=== PATIENT | female | born 2000 | race Hispanic/Latino ===

== ENCOUNTER 2021-01-21 22:28 | Emergency (ER) | payer OTHER ==
--- OUTSIDE RECORDS SUMMARY | 2021-01-21 22:32 | XMS REPORT | Continuity of Care Document ---
:2000 Author Organization [facility] t Address [address] [place] [address] Care Team Providers Name Role Phone Charity Trujillo Attending Clinician Lab, Fam Pob I Attending Clinician Unavailable Singer GARRETT Attending Clinician Payers Payer Name Policy Type Policy Number Effective Date Expiration Date S ource Problems This patient has no known problems. Allergies, Adverse Reactions, Alerts Allergy Allergy Status Severity Reaction(s) Onset Inactive Treating Comm ents Source Name Type Date Date Clinician No Known DA Active U 2019-06 [facility]12 [facility] [place] Medications This patient has no known medications. Procedures This patient has no known procedures. Encounters Start End Encounter Admission Attending Care Care Encounter Source Date/Time Date/Time Type Type Clinicians Facility Department ID 2020-07-24 2020-07-24 Letter JIM Rossi [id number] 00:00:00 00:00:00 (Out) [facility] Service [id number] Surgical [id number] Specialti [id number] [address] [place] 2020-07-17 2020-07-17 Laboratory Lab, [facility] [id number] 14:15:27 14:35:27 Only Fam b [facility] [id number] [place] [id number] [facility] [id number] nal [address] 2019-08-13 2019-08-13 Emergency , [facility] [id number] 16:18:19 18:49:00 Dheeraj Silver [id number] [place] 4.2.7.2.686 [place] [id number] Results Test Description Test Time Test Comments Results Result Comments Source PLACENTA THIRD TRIMESTER 2020-06-05 08:43:00 Test Item Value Reference Range Interpretation Comme nts PLACENTA RUN THIRD DATE: 06/05/20 [facility] PAGE 1 RUN TRIMESTER TIME: 1913 Specimen Inquiry RUN USER: INTERFACE (test code = PLACIII) SHIRA ENT: KATHY PRASAD [place] [facility] [place]: [id number] AGE/SX: 19/F ROOM: [facility] RE06/01/20REG DR: Brenda Baca MD : 00 BED: A DIS: 06/04/20 STATUS: DIS IN TLOC: SPEC #: [id number] R BANKING ASSISTANT: 06/02/20 STATUS: SUJEY HARVEY #: [id number] ADY: - SUBM DR: Brenda Baca MD ENTERED: 06/02/20 SP TYPE: PL ACIII OTHR DR: ORDERED: LEVEL V SURGICA CODES: MI2305 - PLACENTA, NOS PROCEDURES: LE DAVINA V SURGICA (Incomplete) TISSUES: PLACENTA, NOS - PLACENTA CLINICAL HI STORY 19 year old, 36.0 weeks, L1, vaginal delivery, prematurity <37 weeks (wpd) FINAL DIAGNOSIS Placenta, bhagat gestation (36.0 weeks): - third trimester villous archite cture - intraplacental hemorrhage/thrombus - umbilical cord: insertion 1 cm from margin, 3- vessel, 45 cm length - placental weight: actual 345 gms/expected mean 447 gms (10-25th percentile) CPT Code: 32184 cds/wpd GROSS DESCRIPTION The specimen was received in a container, labeled with the patient's n lidia, unit number and designated "placenta". The following attributes are observed: Cord insertion: 1 cm from margin Cord length: 45 cm Number of vessels: 3 Cord color: Suresh-white O ther cord findings: None surface findings: Blue-purple, wrinkled, glistening with focal subchorionic fibrin depositi on Vasculature: Unremarkable blood vasculature Membranes rupt ure site: 5 cm to margin Membrane color: Suresh-pink Other membran e findings: Semi-translucent, circummarginate The trimmed placental weight: 345 gm Disk measurement: 15 x 14 x 3 cm in greatest dimension Accesso ry lobes: None CONTINUED ON NEXT PAGE RUN DATE: 06/05/20 [facility] PAGE 2 RUN TIME: 1913 Specimen Inquiry RUN USER: INTERFACE SPEC #: [id number] PATIENT: KATHY PRASAD #[id number] (Continued) ------- GROSS DESCRIPTION (Continued) Maternal surface: Lobulated and focally disrup robert, but complete Parenchyma: Red-brown and spongy Parenchyma lesions: None Cassettes: A1 through A4 corine 06/03/20 ---- Signed Fercho Jones 06/05/20 0843 END OF REPORT CBC W/AUTO [id number] 10:33:00 Test Item Value Reference Range Interpretation Comments WHITE BLOOD CELL (test 21.3 K/mm3 6.6-12.1 HH RESU LTS CALLED TO code = WBC) .READ BACK & CONFIRMED? .BY [id number] 06/03 1032.RESULTS CA LLED TO MAURICIO.READ KATARZYNA K & CONFIRMED? YES. BY [id number] 06/03 1033.Results verified by rep eat analysis RED BLOOD CELL (test 3.31 M/mm3 3.45-5.01 L code = RBC) HEMOGLOBIN (test code = 8.6 g/dL 10.7-13.9 L HGB) HEMATOCRIT (test code = 27.3 % 32.1-42.1 L HCT) MEAN CELL VOLUME (test 83 fL 84.1-94.8 L code = MCV) MEAN CELL HGB (test code 26.0 pg 27-35 L = MCH) MEAN CELL HGB 31.5 gm/dL 32.2-34.1 L CONCETRATION (test code = MCHC) RED CELL DISTRIBUTION 13.6 % 12.4-16.5 N WIDTH (test code = RDW) PLATELET COUNT (test 307 K/mm3 133-385 N code = PLT) MEAN PLATELET VOLUME 10.5 fl 9.1-12.7 N (test code = MPV) NEUTROPHIL % (test code 78.6 % 56.5-79.4 N = NT%) LYMPHOCYTE % (test code 13.9 % 14.3-34.3 L = LY%) MONOCYTE % (test code = 5.8 % 5.1-10.4 N MO%) EOSINOPHIL % (test code 0.0 % 0.1-3.0 L = EO%) BASOPHIL % (test code = 0.1 % 0.1-1.0 N BA%) NEUTROPHIL # (test code 16.8 K/mm3 = NT#) LYMPHOCYTE # (test code 3.0 K/mm3 = LY#) MONOCYTE # (test code = 1.2 K/mm3 MO#) EOSINOPHIL # (test code 0 K/mm3 = EO#) BASOPHIL # (test code = 0.0 K/mm3 BA#) RBC MORPHOLOGY REQUIRED NORMAL (test code = RBCM) PLATELET MORPHOLOGY NORMAL REQUIRED (test code = PLTMR) CBC W/AUTO [id number] 10:33:00 Test Item Value Reference Range Interpretation Comments WHITE BLOOD CELL (test 21.3 K/mm3 6.6-12.1 HH RESU LTS CALLED TO code = WBC) .READ BACK & CONFIRMED? .BY [id number] 06/03 1032.RESULTS CA LLED TO MAURICIO.READ KATARZYNA K & CONFIRMED? YES. BY [id number] 06/03 1033.Results verified by rep eat analysis RED BLOOD CELL (test 3.31 M/mm3 3.45-5.01 L code = RBC) HEMOGLOBIN (test code = 8.6 g/dL 10.7-13.9 L HGB) HEMATOCRIT (test code = 27.3 % 32.1-42.1 L HCT) MEAN CELL VOLUME (test 83 fL 84.1-94.8 L code = MCV) MEAN CELL HGB (test code 26.0 pg 27-35 L = MCH) MEAN CELL HGB 31.5 gm/dL 32.2-34.1 L CONCETRATION (test code = MCHC) RED CELL DISTRIBUTION 13.6 % 12.4-16.5 N WIDTH (test code = RDW) PLATELET COUNT (test 307 K/mm3 133-385 N code = PLT) MEAN PLATELET VOLUME 10.5 fl 9.1-12.7 N (test code = MPV) NEUTROPHIL % (test code 78.6 % 56.5-79.4 N = NT%) LYMPHOCYTE % (test code 13.9 % 14.3-34.3 L = LY%) MONOCYTE % (test code = 5.8 % 5.1-10.4 N MO%) EOSINOPHIL % (test code 0.0 % 0.1-3.0 L = EO%) BASOPHIL % (test code = 0.1 % 0.1-1.0 N BA%) NEUTROPHIL # (test code 16.8 K/mm3 = NT#) LYMPHOCYTE # (test code 3.0 K/mm3 = LY#) MONOCYTE # (test code = 1.2 K/mm3 MO#) EOSINOPHIL # (test code 0 K/mm3 = EO#) BASOPHIL # (test code = 0.0 K/mm3 BA#) RBC MORPHOLOGY REQUIRED NORMAL NORMAL (test code = RBCM) PLATELET MORPHOLOGY NORMAL NORMAL REQUIRED (test code = PLTMR) URINALYSIS [id number] 02:33:00 Test Item Value Reference Range Interpretation Comments UA COLOR (test code = COLU) STRAW YELLOW UA APPEARANCE (test code = Slightly-Cloudy CLEAR APPU) UA GLUCOSE DIPSTICK (test NEGATIVE NEG code = DGLUU) UA BILIRUBIN DIPSTICK (test NEGATIVE NEG code = BILU) UA KETONE DIPSTICK (test code 1+ NEG A = KETU) UA SPECIFIC GRAVITY (test 1.005 1.001-1.035 N code = SGU) UA BLOOD DIPSTICK (test code 2+ NEG A = DONNY) UA PH DIPSTICK (test code = 7.0 5-9 CHAU) UA PROTEIN DIPSTICK (test NEGATIVE NEG code = PROU) UA UROBILINIOGEN DIPSTICK NEGATIVE mg/dL NEG (test code = URO) UA NITRITE DIPSTICK (test NEG NEG code = ROXANNE) UA LEUKOCYTE ESTERASE 3+ NEG A DIPSTICK (test code = LEUU) UA WBC (test code = WBCU) 2-5 #/hpf NONE SEEN A UA RBC (test code = RBCU) 6-10 #/hpf NONE SEEN A UA EPITHELIAL CELLS (test RARE #/HPF RARE-FEW code = EPIU) UA BACTERIA (test code = RARE /HPF RARE-FEW BACU) UA MUCUS (test code = MUCU) RARE NONE SEEN AG HEPATITIS B [id number] 02:33:00 Test Item Value Reference Range Interpretation Comments AG HEPATITIS B SURFACE (test code NONREACTIVE NONREACTIVE = HBSAG) IS CONSENT FORM SIGNED FOR HIV TESTING? B HEPATITIS C [id number] 02:33:00 Test Item Value Reference Range Interpretation Comments AB HEPATITIS C (test code = NONREACTIVE NONREACTIVE HCVAB) SIGNAL TO CUTOFF (test code = 0.09 <0.80 N CUTOFF) IS CONSENT FORM SIGNED FOR HIV TESTING? YAB [id number] 02:33:00 Test Item Value Reference Range Interpretation Comments AB TREPONEMA (test code = TREPAB) NONREACTIVE NONREACTIVE IS CONSENT FORM SIGNED FOR HIV TESTING? B HIV 1 02:33:00 Test Item Value Reference Range Interpretation Comments AB HIV 1 2 (test NONREACTIVE NONREACTIVE [facility] Proteopureaur code = [id number]) 4th Gen HIV Ag/Ab Combo Screen IS CONSENT FORM SIGNED FOR HIV TESTING? YCOMPREHENSIVE METABOLIC [id number] 02:30:00 Test Item Value Reference Range Interpretation Comments SODIUM (test code = NA) 137 mEq/L 135-145 N POTASSIUM (test code = K) 4.4 mEq/L 3.5-5.0 N CHLORIDE (test code = CL) 103 mEq/L 100-115 N CARBON DIOXIDE (test code = CO2) 20 mEq/L 22-31 L ANION GAP (test code = GAP) 18.60 10-20 N GLUCOSE (test code = GLU) 68 mg/dL 65-110 N BLOOD UREA NITROGEN (test code = 5 mg/dL 7-18 L BUN) GLOMERULAR FILTRATION RATE (test 206 ml/min >60 N code = GFR) CREATININE (test code = CREAT) 0.4 mg/dL 0.5-1.0 L TOTAL PROTEIN (test code = PROT) 6.7 gm/dL 6.3-8.2 N ALBUMIN (test code = ALB) 2.7 gm/dL 3.4-4.8 L CALCIUM (test code = CA) 8.7 mg/dL 8.4-10.2 N BILIRUBIN TOTAL (test code = 0.3 mg/dL 0.2-1.0 N BILT) SGOT/AST (test code = AST) 42 units/L 15-37 H SGPT/ALT (test code = ALT) 19 units/L 12-78 N ALKALINE PHOSPHATASE TOTAL (test 188 units/L 46-116 H code = ALKP) - US FLW [id number] 02:24:00 [facility] : 2000 Sex: F Patient Name: KATHY PRASAD Unit No: [id number] EXAMS: CPT CODE: [id number] [place] FLW UP 69778 STUDY: - US FLW UP 06/01/2020 1:09 AM Ordering Physician: Cris Hardy MD Patient Name: KATHY PRASAD MR: [id number] : 2000; Age: 19years y/o Female Clinical Indication: labor 35wk, growth, lea Comparison: None FINDINGS: Multiple static images from a limited obstetrical ultrasound including krishnan scale and M- mode imaging are submitted for interpretation. The examination was performed primarily to assess presentation, size, and dates. The structures were not assessed. GENERAL DESCRIPTION Single live intrauterine . Presentation: Cephalic/vertex Placental location: Posterior Placental grade: III Placenta previa: No. Amniotic fluid: Normal in appearance. LEA: 11.8 cm Cervix: Limited visualization of the cervix related to artifact from the head. The cervix is estimated 2.2 cm in length. Normal maternal right ovary measuring 2.5 x 1.5 x 1.6 cm. Nonvisualizedmaternal left ovary likely related to artifact from body habitus and overlying bowel gas. STRUCTURES Brain: Not evaluated. Spine: Not evaluated. Heart: Not evaluated. heart rate: 135 beats per minute. Kidneys: Not evaluated. Urinary Bladder: Not evaluated. Stomach: Not evaluated. Umbilical Cord: Not evaluated. Cord Insertion: Not evaluated. Extremities: Not evaluated. BIOMETRIC MEASUREMENTS BPD 8.27 cm 33 W 2 D HEAD CIRCUMFERENCE 31.15 cm 34 W 6 D [facility] NAME: KATHY PRASAD Radiology Department PHYS: BISHNUTimothy Cris Hardy [address] : 2000 AGE: 19 SEX: F [place], [place] [address] LOC: MAGUI DPHONE #: [phone] EXAM DATE: 06/01/2020 STATUS: ADM IN FAX #: [phone] RAD NO: Page 1 Signed Report (CONTINUED)Patient Name: KATHY PRASAD Unit No: [id number] EXAMS: CPT CODE: [id number] [place] FLW UP 13364 <Continued> ABDOMINAL CIRCUMFERENCE 31.96 cm 35 W 6 D FEMUR LENGTH 6.99 cm 35 W 6 D COMPOSITE SONOGRAPHIC AGE 34 W 6 D ESTIMATED WEIGHT 2658 g ESTIMATED DATE DELIVERY (US) 07/07/2020 IMPRESSION: Single live intrauterine pregnancyat 34 weeks 6 days as above described. LEA 11.8 cm. The structures are not individually evaluated on this examination, but no abnormality is demonstrated. GENERAL OBSERVATIONS REGARDING ULTRASOUND: 1. A normal or negative sonogram report should not delay further investigation of a clinically suspicious or abnormal . 2. position or overlap of parts may prevent complete evaluation of the fetus. 3. Congenital and developmental abnormalities are not always sonographically visualized. 4. Repeat sonograms may be necessary depending on the clinical development during . SL: TPAINTER-H at 0224 Reported and signed by: Kaushik Reyna MD [facility] NAME: KATHY PRASAD Radiology Department PHYS: Cris Hardy [address] : 2000 AGE: 19 SEX: F [place], [place] [address] LOC: MAG[facility] [place] PHONE #: [phone] EXAM DATE: 06/01/2020 STATUS: ADM IN FAX #: [phone] RAD NO: Page 2 Signed Report (CONTINUED) Patient Name: KATHY PRASAD Unit No: [id number] EXAMS: CPT CODE: [id number] US FLW UP 17189 <Continued> CC: Brenda Baca MD; Cris winters MD Technologist: Mirella Jaimes RDMS Probe: Trnscrbd D/ ([id number] Orig Print D/T: S: 06/01/2020 (226) [facility] NAME: KATHY PRASAD Radiology Department PHYS: Alix Limfer Rai [address] : 2000 AGE: 19 SEX: F [place] [address] LOC: [facility] [place] PHONE #: [phone] EXAM DATE: 06/01/2020 STATUS: ADM IN FAX #: [phone] RAD NO: Page 3 Signed Report Patient Name: GLENNA PRASAD Unit No: [id number] EXAMS: CPT CODE: [id number] US FLW UP 30364 <Continued> [facility] NAME: KATHY PRASAD Radiology Department PHYS: Alix OliveiraCelina [address] : 2000 AGE: 19 SEX: F [place] [address] LOC: [facility] [place] PHONE #: [phone] EXAM DATE: 06/01/2020 STATUS: ADM IN FAX #: [phone] RAD NO: Page 4 Signed ReportAG HEPATITIS B SURFACE 2020-06-01 02:13:00 Test Item Value Reference Range Interpretation Comments AG HEPATITIS B SURFACE (test code NONREACTIVE NONREACTIVE = HBSAG) IS CONSENT FORM SIGNED FOR HIV TESTING? YAB HEPATITIS C [id number] 02:13:00 Test Item Value Reference Range Interpretation Comments AB HEPATITIS C (test code = HCVAB) NONREACTIVE SIGNAL TO CUTOFF (test code = CUTOFF) <0.80 IS CONSENT FORM SIGNED FOR HIV TESTING? YAB [id number] 02:13:00 Test Item Value Reference Range Interpretation Comments AB TREPONEMA (test code = TREPAB) NONREACTIVE NONREACTIVE IS CONSENT FORM SIGNED FOR HIV TESTING? YAB HIV 1 02:13:00 Test Item Value Reference Range Interpretation Comments AB HIV 1 2 (test code = UQF33LE) NONREACTIVE IS CONSENT FORM SIGNED FOR HIV TESTING? YCBC W/AUTO [id number] 01:26:00 Test Item Value Reference Range Interpretation Comments WHITE BLOOD CELL (test code = WBC) 14.6 K/mm3 6.6-12.1 H RED BLOOD CELL (test code = RBC) 3.72 M/mm3 3.45-5.01 N HEMOGLOBIN (test code = HGB) 9.6 g/dL 10.7-13.9 L HEMATOCRIT (test code = HCT) 30.3 % 32.1-42.1 L MEAN CELL VOLUME (test code = MCV) 82 fL 84.1-94.8 L MEAN CELL HGB (test code = MCH) 25.8 pg 27-35 L MEAN CELL HGB CONCETRATION (test 31.7 gm/dL 32.2-34.1 L code = MCHC) RED CELL DISTRIBUTION WIDTH (test 13.3 % 12.4-16.5 N code = RDW) PLATELET COUNT (test code = PLT) 332 K/mm3 133-385 N MEAN PLATELET VOLUME (test code = 10.0 fl 9.1-12.7 N MPV) NEUTROPHIL % (test code = NT%) 72.8 % 56.5-79.4 N LYMPHOCYTE % (test code = LY%) 19.0 % 14.3-34.3 N MONOCYTE % (test code = MO%) 7.1 % 5.1-10.4 N EOSINOPHIL % (test code = EO%) 0.1 % 0.1-3.0 N BASOPHIL % (test code = BA%) 0.2 % 0.1-1.0 N NEUTROPHIL # (test code = NT#) 10.6 K/mm3 LYMPHOCYTE # (test code = LY#) 2.8 K/mm3 MONOCYTE # (test code = MO#) 1.0 K/mm3 EOSINOPHIL # (test code = EO#) 0.01 K/mm3 BASOPHIL # (test code = BA#) 0.0 K/mm3 RBC MORPHOLOGY REQUIRED (test code NORMAL NORMAL = RBCM) PLATELET MORPHOLOGY REQUIRED (test NORMAL NORMAL code = PLTMR) COVID 19 Asymptomatic IH [id number] 01:19:00 Test Item Value Reference Range Interpretation Comments COVID 19 NEGATIVE NEGATIVE This test has b een Asymptomatic IH AG authorize d only for the (test code = detection ofpro teins from COVNONPUIAG) SARS-CoV-2, not for any other viruses orpathogens. N egative results should be treated as presumptive andconfirmed wi th a molecular assay , if necessary for patientmanageme nt. Negative result s do not rule out COVID- 19 andshould not b e used as the sole basis for treatment orpat ient management deci sions, including infec tion controldecision s. Negative result s should be considered i n thecontext of a patient's recent exposure s, history and thepresence of clinical signs and symptoms consis tent withCOVID-19. T his test has not been FD A cleared or approved; th e test hasbeen authori beny by FDA under an Emerge ncy Use Authorization(E UA) for use by laborato ramón certified under the CLIA thatmeet the re quirements to perform mode rate, high or waivedcomple xity tests. This meri t is authorized for use at thePoint of Car e (POC), i.e., in patien t care settingsoperati ng under a CLIA Certificat e of Waiver, Certifi mariana ofCompliance, o r Certificate of Accreditation. This test is only authori jolied for the duration of thedeclaration that circumstances e xist justifying theauthorizatio n of emergency use o f in vitro diagnostic test sfor detection and/o r diagnosis of CO VID-19 under Hsyypyy23 4(b)(1) of the Act, 21 U.S .C. 360bbb-3(b)(1), unless theauthorizatio n is terminated or r evoked sooner.
[2021-01-21 23:25] LABS: Urine Blood Negative (Negative); Urine Glucose Negative (Negative); Urine Protein Negative (Negative); Urine Specific Gravity 1.025 (1.005-1.030); Urine pH 6.5 (5.0-7.0)
[2021-01-21 23:47] LABS: Urine Mucus 1+ /HPF (NONE SEEN)
[2021-01-21 23:48] LABS: Urine Bacteria <20 /HPF (<20); Urine RBC <5 /HPF (NONE SEEN)
[2021-01-21 23:51] LABS: Urine Specific Gravity/Preg 1.025 (1.005-1.030)
[2021-01-21 23:54] LABS: Absolute Lymphocytes (CBC) 3.2 K/uL (0.7-4.9); Basophils % 0.6 % (0-1.3); Hematocrit 38.4 % (36.0-45.0); Lymphocytes % 32.7 % (15.3-44.8); MPV 7.8 fL (7.6-11.3); RBC Red Blood Cell Count 4.63 M/uL (3.86-4.86)
[2021-01-22 00:05] LABS: ALT/SGPT 25 U/L (12-78); AST/SGOT 14 U/L (15-37); Albumin 3.9 g/dL (3.4-5.0); Alkaline Phosphatase 128 U/L (45-117); BUN Blood Urea Nitrogen 8 mg/dL (7-18); Bicarbonate 26 mmol/L (21-32); Bilirubin Direct < 0.1 mg/dL (0-0.2); Bilirubin Total 0.2 mg/dL (0.2-1.0); Glucose Level 69 mg/dL (74-106); Lipase 78 U/L (73-393); Potassium 3.5 mmol/L (3.5-5.1); Protein, Total 7.8 g/dL (6.4-8.2); Sodium Level 141 mmol/L (136-145)
--- NOTE | 2021-01-22 01:15 | ER ---
Nurse's Notes [facility] Name: Sisi Aldrich Age: 20 yrs Sex: Female : 2000 Arrival Date: 01/21/2021 Time: 22:34 Bed 11 Private MD: Diagnosis: Lower abdominal pain, unspecified Presentation: 01/21 22:43 Chief complaint: Patient states: is having some pain to LLQ area and shoots up, started iw 2 hours ago, had a BM. Coronavirus screen: At this time, the client does not indicate any symptoms associated with coronavirus-19. Ebola Screen: Patient negative for fever greater than or equal to 101.5 degrees Fahrenheit, and additional compatible Ebola Virus Disease symptoms Patient denies exposure to infectious person. Patient denies travel to an Ebola-affected area in the 21 days before illness onset. No symptoms or risks identified at this time. Initial Sepsis Screen: Does the patient meet any 2 criteria? No. Patient's initial sepsis screen is negative. Does the patient have a suspected source of infection? No. Patient's initial sepsis screen is negative. Risk Assessment: Do you want to hurt yourself or someone else? Patient reports no desire to harm self or others. Onset of symptoms was January 21, 2021. 22:43 Method Of Arrival: Ambulatory iw 22:43 Acuity: KAVIN 3 iw ROBOTICS MECHANIC: 22:45 LMP N/A - control method iw Historical: - Allergies: 22:44 No Known Allergies; iw - Home Meds: 22:44 None [Active]; iw - PMHx: 22:44 None; iw - PSHx: 22:44 None; iw Screenin/05 00:45 Abuse screen: Denies threats or abuse. Nutritional screening: No deficits noted. jb4 Tuberculosis screening: No symptoms or risk factors identified. Fall Risk None identified. Assessment: 00:45 General: Appears in no apparent distress. comfortable, Behavior is calm, cooperative. jb4 Pain: Complains of pain in abdomen Pain does not radiate. Pain currently is 7 out of 10 on a pain scale. Neuro: Level of Consciousness is awake, alert, obeys commands, Oriented to person, place, time, situation. Cardiovascular: Patient's skin is warm and dry. Respiratory: Airway is patent Respiratory effort is even, unlabored, Respiratory pattern is regular, symmetrical. GI: Abdomen is flat, non-distended. : No signs and/or symptoms were reported regarding the genitourinary system. EENT: No signs and/or symptoms were reported regarding the EENT system. Derm: Skin is intact, Skin is pink, warm \T\ dry. Musculoskeletal: Circulation, motion, and sensation intact. Range of motion: intact in all extremities. 01:45 Reassessment: Patient appears in no apparent distress at this time. Patient and/or jb4 family updated on plan of care and expected duration. Pain level reassessed. Patient is alert, oriented x 3, equal unlabored respirations, skin warm/dry/pink. Vital Signs: 01/21 22:43 BP 157 / 96; Pulse 105; Resp 16; Temp 98.0; Pulse Ox 100% on R/A; iw ED Course: 22:34 Patient arrived in ED. wm 22:44 Triage completed. iw 22:47 Brenda Ponce FNP-C is PHCP. kb 22:47 Alex Alexandra MD is Attending Physician. kb 23:12 Inserted saline lock: 22 gauge in right antecubital area, using aseptic technique. iw Blood collected. 08 00:42 Montana Ren, RN is Primary Nurse. jb4 00:43 CT Abd/Pelvis - IV Contrast Only In Process Unspecified. EDMS 00:45 Patient has correct armband on for positive identification. Bed in low position. Call jb4 light in reach. Side rails up X 1. Pulse ox on. NIBP on. 01:45 No provider procedures requiring assistance completed. IV discontinued, intact, jb4 bleeding controlled, No redness/swelling at site. Pressure dressing applied. Administered Medications: 01:42 Drug: Ketorolac 15 mg Route: IVP; Site: left antecubital; ms4 01:42 Follow up: Response: No adverse reaction ms4 Outcome: 01:15 Discharge ordered by . kb 01:45 Discharged to home ambulatory, with significant other. jb4 01:45 Condition: stable 01:45 Discharge instructions given to patient, Instructed on discharge instructions, follow up and referral plans. Demonstrated understanding of instructions, follow-up care, Prescriptions given X 1. 01:48 Patient left the ED. jb4 Signatures: Dispatcher [employer] EDID Brenda Ponce FNP-C FNP-Pauline Verdugo, RN RN iw Montana Ren, RN RN jb4 Ana Solis Mikaela RN RN ms4
--- NOTE | 2021-01-22 01:15 | EDPHYS ---
Physician Documentation [facility] Name: Sisi Aldrich Age: 20 yrs Sex: Female : 2000 Arrival Date: 01/21/2021 Time: 22:34 Bed 11 Private MD: ED Physician Alex Alexandra HPI: 01/22 01:12 This 20 yrs old Female presents to ER via Ambulatory with complaints of kb Abdominal Pain - LLQ. 01:12 The patient presents with abdominal pain in the left lower quadrant. Onset: The kb symptoms/episode began/occurred this morning. The symptoms do not radiate. Associated signs and symptoms: none. The symptoms are described as constant. Modifying factors: The symptoms are alleviated by nothing, the symptoms are aggravated by nothing. Severity of pain: At its worst the pain was mild moderate in the emergency department the pain is unchanged. The patient has not experienced similar symptoms in the past. The patient has not recently seen a physician. 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 kb Abdomen/GI: Positive for abdominal pain, Negative for nausea, vomiting, and diarrhea. All other systems are negative. Exam: 01:13 Constitutional: This is a well developed, well nourished patient who is awake, alert, kb and in no acute distress. Head/Face: Normocephalic, atraumatic. ENT: Moist Mucous membranes Cardiovascular: Regular rate and rhythm with a normal S1 and S2. No gallops, murmurs, or rubs. No pulse deficits. Respiratory: Respirations even and unlabored. No increased work of breathing, no retractions or nasal flaring. Abdomen/GI: Soft, non-tender. No distention Skin: Warm, dry with normal turgor. Normal color. MS/ Extremity: Pulses equal, no cyanosis. Neurovascular intact. Full, normal range of motion. Neuro: Awake and alert, GCS 15, oriented to person, place, time, and situation. Moves all extremities. Normal gait. Psych: Awake, alert, with orientation to person, place and time. Behavior, mood, and affect are within normal limits. Vital Signs: 01/21 22:43 BP 157 / 96; Pulse 105; Resp 16; Temp 98.0; Pulse Ox 100% on R/A; iw MDM: 22:47 Patient medically screened. kb 01/22 01:13 Data reviewed: vital signs, nurses notes. Data interpreted: Pulse oximetry: on room air kb is 100 %. Interpretation: normal. Counseling: I had a detailed discussion with the patient and/or guardian regarding: the historical points, exam findings, and any diagnostic results supporting the discharge/admit diagnosis, lab results, radiology results, the need for outpatient follow up, a family practitioner, to return to the emergency department if symptoms worsen or persist or if there are any questions or concerns that arise at home. 01:14 ED course: No abd tenderness upon exam. Pt in no obvious distress. kb 01/21 22:46 Order name: Basic Metabolic Panel 01/21 22:46 Order name: CBC with Diff; Complete Time: 23:56 01/21 22:46 Order name: Hepatic Function; Complete Time: 00:07 01/21 22:46 Order name: Lipase; Complete Time: 00:07 01/21 22:46 Order name: Urine Microscopic Only; Complete Time: 23:56 01/21 22:47 Order name: Basic Metabolic Panel; Complete Time: 00:07 EDME 01/21 22:46 Order name: IV Saline Lock; Complete Time: 00:34 01/21 22:46 Order name: Labs collected and sent; Complete Time: 00:34 01/21 22:46 Order name: Urine Dipstick-Ancillary (obtain specimen); Complete Time: 23:30 01/21 22:46 Order name: Urine Test (obtain specimen); Complete Time: 23:31 01/21 22:46 Order name: CT Abd/Pelvis - IV Contrast Only 01/21 23:24 Order name: Urine Dipstick-Ancillary; Complete Time: 23:26 EDME 01/21 23:25 Order name: Urine --Ancillary (enter results); Complete Time: 23:56 [facility] 01/21 23:30 Order name: Labs - recollect needed: purple and green top; Complete Time: 00:05 mw2 Administered Medications: 01:42 Drug: Ketorolac 15 mg Route: IVP; Site: left antecubital; ms4 01:42 Follow up: Response: No adverse reaction ms4 Disposition: 02:12 Co-signature as Attending Physician, Alex Alexandra MD. pkl Disposition Summary: 01/22/21 01:15 Discharge Ordered Location: Home kb Condition: Stable kb Diagnosis - Lower abdominal pain, unspecified kb Followup: kb - With: Emergency Department - When: As needed - Reason: Worsening of condition Followup: kb - With: Private Physician - When: 2 - 3 days - Reason: Recheck today's complaints, Continuance of care, Re-evaluation by your physician Discharge Instructions: - Discharge Summary Sheet kb - Abdominal Pain, Adult, [id number] kb Forms: - Medication Reconciliation Form kb - Thank You Letter kb - Antibiotic Education kb - Prescription Opioid Use kb Prescriptions: - Diclofenac Sodium 75 mg Oral tablet,delayed release (DR/EC) - take 1 tablet by ORAL route 2 times per day As needed; 30 tablet; Refills: 0, kb Product Selection Permitted Signatures: Dispatcher [employer] EDMS Brenda Ponce, PIPE CHANGER-C PIPE CHANGER-Alex Fallon MD MD pkl Pauline Phillips, RN Rad Mackey mw2 Lata Mendoza RN RN ms4
[2021-01-22] MEDS ORDERED: KETOROLAC 30 MG/ML INJ ONE (01:53)
[2021-01-22 02:53] VITALS: BP 157/96; TEMP 98; O2SAT 100
--- NOTE | 2021-01-22 11:59 | RAD REPORT ---
EXAM DESCRIPTION: CT Abdomen and Pelvis With Intravenous Contrast CLINICAL HISTORY: The patient is 20 years old and is Female; ABD PAIN TECHNIQUE: Axial computed tomography images of the abdomen and pelvis with intravenous contrast. S agittal and coronal reformatted images were created and reviewed. This CT exam was performed using one or more of the following dose reduction techniques: automated exposure control, adjustment of t he mA and/or kV according to patient size, and/or use of iterative reconstruction technique. DLP: 946 mGy*cm COMPARISON: None. FINDINGS: LUNG BASES: Lung bases are clear. HEART: Visualized heart is normal. ABDOMEN: LIVER: Unremarkable. No mass. GALLBLADDER AND BILE DUCTS: Contracted gallbladder. No calcified stones. No ductal dilation. PANCREAS: Unremarkable. No mass. No ductal dilation. SPLEEN: Unremarkable. No splenomegaly. ADRENALS: Unremarkable. No mass. KIDNEYS AND URETERS: Unremarkable. No solid mass. No hydronephrosis. STOMACH AND BOWEL: Unremarkable. No obstruction. No mucosal thickening. PELVIS: APPENDIX: The appendix is seen and is within normal limits. BLADDER: Unremarkable. No mass. REPRODUCTIVE: 3.2 cm right ovarian cyst. ABDOMEN and PELVIS: INTRAPERITONEAL SPACE: No free air. No significant fluid collection. BONES/JOINTS: No acute fracture. No dislocation. SOFT TISSUES: Unremarkable. VASCULATURE: No abdominal aortic aneurysm. LYMPH NODES: No enlarged lymph nodes. TUBES, LINES AND DEVICES: Intrauterine contraceptive device. IMPRESSION: 1. No acute abdominal or pelvic abnormality. 2. 3.2 cm right ovarian cyst. No follow-up imaging is recommended. Reference: US recommendations based on Radiology 2010 Sep;256(3):943-54; CT/MR recommendations based on J Am Padma Radiol 2013;10:675-681. Electronically signed by: Melvin Noble DO 01/22/2021 1:07 AM CDT Due to temporary technical issues with the PACS/Fluency reporting system, reports are being signed by the in house radiologist without review as a courtesy to ensure prompt reporting. The interpreting r adiologist is fully responsible for the content of the report.
== END 2021-01-22 01:48 | disposition home or self-care (01) ==
LOC: ER 22:28
DX: R10.32 Left lower quadrant pain (principal)
CPT/HCPCS: 85025; 80048; 36415; 81025; 80076; 83690; 74177; 96374; 99284; Q9967; 81003; 81015

== ENCOUNTER 2023-02-17 18:03 | Emergency (ER) | payer OTHER ==
--- OUTSIDE RECORDS SUMMARY | 2023-02-17 18:42 | XMS REPORT | Continuity of Care Document ---
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 (test code = 5.2 g/dL 3.5-5 H 1099207216) ALK PHOS (test code = 107 U/L 34-122 3689818442) ALTv (test code = 18 U/L 5-35 1742-6) AST(SGOT) (test code = 43 U/L 13-40 H 7397954168) eGFR Calculation mL/min/1.73m2 (Non-) (test code = 6681142290) eGFR Calculation mL/min/1.73m2 () (test code = 7399658227) TIAN (test code = TIAN) Association of Glomerular Filtration Rate (GFR) and Staging of Kidney Disease* + --+ --+ ------+| GFR (mL/min/1.73 m2) ?| With Kidney Damage ?| ?Without Kidney Damage+ --------+ --------+ +| ?>90 ?| ?Stage one ?| ? Normal ?+ ---+ ---+ -------+| ?60-89 ?| ?Stage two ?| ? Decreased GFR ? + --+ --+ ------+| ?30-59 ?| ?Stage three ?| ? Stage three ? + --+ --+ ------+| ?15-29 ?| ?Stage four ? | ? Stage four ?+ ---+ ---+ -------+| ?<15 (or dialysis) ? ?| ?Stage five ? | ? Stage five ?+ ---+ ---+ -------+ *Each stage assumes the associated GFR level has been in effect for at least three months. ?Stages 1 to 5, with or without kidney disease, indicate chronic kidney disease. Notes: Determination of stages one and two (with eGFR >59mL/min/1.73 m2) requires estimation of kidney damage for at least three months as defined by structural or functional abnormalities of the kidney, manifested by either:Pathological abnormalities or Markers of kidney damage (including abnormalities in the composition of the blood or urine or abnormalities in imaging tests). Lab Interpretation Abnormal (test code = 57586-1) [facility] [id number] 23:05:00 Test Item Value Reference Range Interpretation Comments APPEARANCE (test code = Hazy Clear A 1420110382) COLOR (test code = Yellow Yellow 3812471830) PH (test code = 4.8-8.0 1802341806) SP GRAVITY (test code = 1.003-1.030 5782166377) GLU U QUAL (test code = Normal Normal 9511578481) BLOOD (test code = 2+ Negative A 6590882373) KETONES (test code = 5 mg/dL Negative A 4839215644) PROTEIN (test code = Negative Negative 2887-8) UROBILIN (test code = Normal Normal 5344333611) BILIRUBIN (test code = Negative Negative 6392549619) NITRITE (test code = Negative Negative 5035834924) LEUK GERARDO (test code = Negative Negative 1180127225) RBC/HPF (test code = See_Comment H [Autom ated message] 0807676512) The system [employer] generated this result transmitted ref erence range: 0 - 3 HP F. The reference range was not used to int erpret this result as normal/abnormal . WBC/HPF (test code = See_Comment [Autom ated message] 8135871968) The system [employer] generated this result transmitted ref erence range: 0 - 5 HP F. The reference range was not used to int erpret this result as normal/abnormal . BACTERIA (test code = Few Negative A 3124875741) MUCOUS (test code = Marked Negative LPF A 2602108640) SQ EPITH (test code = HPF 7328966990) Lab Interpretation (test Abnormal code = 70528-2) [facility] WITH [id number] 22:56:00 Test Item Value Reference Range Interpretation Comments WBC (test code = See_Comment [Automated 1190-2) message] The sy stem which generated this result transmitted reference range : 4.50 - 13.50 10*3/?L. The reference range was not used to interpret this result as normal/abnormal . RBC (test code = See_Comment [Automated 959-8) message] The sy stem which generated this result transmitted reference range : 4.10 - 5.10 10*6/?L. The reference range was not used to interpret this result as normal/abnormal . HGB (test code = 13.4 g/dL 12-16 718-7) HCT (test code = 41.1 % 36-45 4544-3) MCV (test code = 85.1 fL 78-95 787-2) MCH (test code = 27.7 pg 26-32 785-6) MCHC (test code = 32.6 g/dL 32-36 786-4) RDW-SD (test code = 39.8 fL 38.5-49 22734-7) RDW-CV (test code = 12.9 % 11.5-14 788-0) PLT (test code = See_Comment H [Automated 777-3) message] The sy stem which generated this result transmitted reference range : 135 - 361 10*3/ ?L. The reference r billy was not used to interpret this result as normal/abnormal . MPV (test code = 9.8 fL 9.4-13.3 99900-2) NRBC/100 WBC (test See_Comment [Automat ed code = 0720121533) message] The system which generated this result transmitted reference range : 0.0 - 10.0 /100 WBCs. The refer ence range was not u sed to interpret th is result as normal/abnormal . NRBC x10^3 (test code <0.01 See_Comment [Auto mated = 9019917780) message] The s ystem which generated this result transmitted reference range : 10*3/?L. The reference range was not used to interpret this result as normal/abnormal . GRAN MAT (NEUT) % 66.3 % (test code = 770-8) IMM GRAN % (test code 0.40 % = 8242985337) LYMPH % (test code = 27.6 % 736-9) MONO % (test code = 5.2 % 5905-5) EOS % (test code = 0.1 % 713-8) BASO % (test code = 0.4 % 706-2) GRAN MAT x10^3(ANC) 7.58 10*3/uL 1.5-10.3 (test code = 6329002213) IMM GRAN x10^3 (test 0.05 10*3/uL 0-0.06 code = 6938535098) LYMPH x10^3 (test code 3.15 10*3/uL 0.7-7.4 = 731-0) MONO x10^3 (test code 0.59 10*3/uL 0-0.5 H = 742-7) EOS x10^3 (test code = <0.03 0-0.4 711-2) BASO x10^3 (test code 0.04 10*3/uL 0-0.1 = 704-7) Lab Interpretation Abnormal (test code = 95930-8) [id number] Test Item Value Reference Range Interpretation Comments POCT PREG (test code = 1605) negative On board controls acceptable with present C Line (test code = 3574) POCT PREG LOT # (test code = 3575) [id number] POCT PREG TEST DATE (test 01/17/2021 code = 3576) Lab Interpretation (test code = Normal 35804-4) [facility] Notes Date/Time Note Provider Source 2020-06-04 08:10:00-00:00 [facility] OB Disch REPORT#:[id number] REPORT STATUS: Signed DATE:06/04/20 TIME: 08 PATIENT: KATHY PRASAD UNIT #: [id number] ROOM/BED: [address] : 00 AGE: 19 SEX: F ATTEND: Mary Baca MD ADM AUTHOR: Brenda Baca MD * ALL edits or amendments must be made on the [employer]/computer document * Subjective Subjective Admission EGA: Weeks: 35 Days: 5 EGA at delivery (wks/days): 36 weeks Status/day: post (day 2) Patient reports: Patient reports: Yes: normal lochia, pain management effective, tolerating po well, voiding well, voiding without pain, tolerating ambulatio n, flatus. No: complaints, bowel movement, nausea, vomiting, excessive blee ding. Objective General VS: Vital Signs Date Temp Pulse Resp B/P B/P Mean Pulse Ox FiO2 06/03 98.8 71-78 18-20 107-124/- Last Documented: Result Date Time B/P 06/03 Temp 98.8 06/03 2340 Pulse 78 06/03 2340 Resp 18 06/03 2340 Pulse Ox 98 06/03 0808 B/P Mean 77.0 06/02 1512 PATIENT WEIGHT: Weight (lb): Weight (oz): 0 Weight (kg): 58.921939 Physical Exam Lungs: unlabored breathing Abdomen: post gravid, soft Uterus: involution appropriate Fundus: firm, below the umbilicus Lochia: moderate Results Findings/Data: Laboratory Tests: 06/03 1015 Hematology WBC (6.6 - 12.1 K/mm3) 21.3 *H RBC (3.45 - 5.01 M/mm3) 3.31 L Hgb (10.7 - 13.9 g/dL) 8.6 L Hct (32.1 - 42.1 %) 27.3 L MCV (84.1 - 94.8 fL) 83 L MCH (27 - 35 pg) 26.0 L MCHC (32.2 - 34.1 gm/dL) 31.5 L RDW (12.4 - 16.5 %) 13.6 Plt Count (133 - 385 K/mm3) 307 MPV (9.1 - 12.7 fl) 10.5 Neut % (Auto) (56.5 - 79.4 %) 78.6 Lymph % (Auto) (14.3 - 34.3 %) 13.9 L [place] % (Auto) (5.1 - 10.4 %) 5.8 Eos % (Auto) (0.1 - 3.0 %) 0.0 L Baso % (Auto) (0.1 - 1.0 %) 0.1 Neut # (Auto) (K/mm3) 16.8 Lymph # (Auto) (K/mm3) 3.0 [place] # (Auto) (K/mm3) 1.2 Eos # (Auto) (K/mm3) 0 Baso # (Auto) (K/mm3) 0.0 Discharge Summary General Problem List/A P: 1. labor 2. 35 weeks gestation of Date of admission: Date of admission: 06/01/20 Admission diagnosis: [id number] Hospital course: Admitted at 35w5d for labor. Initiated on BMZ for lung maturity and observed on L D unit. She was initiated on Procardia for tocolysis for the steroid wi ndow. However, despite these interventions, patient progressed in spontaneous labor until sh e delivered at 36w0d (after completion of BMZ) via . Please see delivery note for de tails. course was uncomplicated. She was discharged home on PPD #2 in stable condition. Procedures: spontaneous vaginal deliv Discharge condition: stable Discharge to: Home/Self Care Discharge diagnosis: pre-term labor Discharge management: less than 30 mins Time spent: >50% spent on counseling/coordination of care: yes Baby A: Vaginal delivery: spontaneous status: live born Gender: male 1 minute: 8 5 minutes: 9 Anomalies: none noted Nursing data: The data set between the solid lines has been im ported from nursing documentation. Any exceptions have been noted be low under Provider comments. Delivery date A: 06/02/20 Delivery time i nfant A: 1312 Birthweight (gm) infant A: 2460 Feeding preference: Gender infant A: Male 1 minute infant A: 5 minutes infant A: 10 minutes A: Provider comments on imported nursing data: [] Plan: routine care, circumcision toda y, discharge tomorrow, CBC pending. Asx. Discussed importance of ir on on discharge (Hgb 9.6 on admission) Discharge Instructions Instructions: routine instr sheet given, instr a nd warnings rev'd, specific instr as noted Diet: Regular Activity: No [place] for 6 Wks, No Swimming Additional discharge routines: PCP Follow-Up Contraception discussed: abstinence for 4-6 week s, will discuss at PP visit Discharge meds: Continue taking these medications: PNV WITH FE FUMARATE/FA () 1 EACH TAB 1 TABLET ORAL DAILY. Start taking the following new medications: IBUPROFEN (MOTRIN) 800 MG TAB 800 MILLIGRAM ORAL EVERY 8 HR NEEDED. as nee ded for PAIN Qty = 30 No Refills IRON/FA/B12/C/DOCUSATE SODIUM (FERRALET 90) 90 MG-1 MG-12 MCG-120 MG-50 MG TAB 1 TABLET ORAL DAILY. Qty = 90 Refills = 1 Prescriptions: e-prescribe Consultation(s): Consultation performed: enterprise resource planning consultant Add'l Follow-up Appointments Attending Physician: Attending Physician: Brenda Baca MD at 0814 RPT #:[id number] END OF REPORT 2020-06-03 09:04:00-00:00 [facility] ([facility]) OB Postpart Progr Note REPORT#:[id number] REPORT STATUS: Signed DATE:06/03/20 TIME: 09 PATIENT: KATHY PRASAD UNIT #: [id number] ROOM/BED: [address] : 00 AGE: 19 SEX: F ATTEND: Mary Baca MD ADM AUTHOR: Brenda Baca MD * ALL edits or amendments must be made on the [employer]/computer document * Subjective Subjective Admission EGA: Weeks: 35 Days: 5 EGA at delivery (wks/days): 36 weeks Status/day: post (day 1) Comments: DOing well this AM. No pain. Has ambulated and v oided. No BM yet, but feels rectal pressure. Baby is at bedside, they are st ruggling with latching so she has been pumping. consult is pending Objective Nursing Documentation Review Nursing data: The data set between the solid lines has been im ported from nursing documentation. Any exceptions have been noted be low under Provider comments. Feeding preference: Provider comments on imported nursing data: [] General VS: Vital Signs Date Temp Pulse Resp B/P B/P Mean Pulse Ox FiO2 06/02-06/03 97.1-98.7 67-95 16- 92-131/50-78 67.0-91.0 98-99 Last Documented: Result Date Time Pulse Ox 98 06/03 0808 B/P 99/65 06/03 0808 Temp 97.1 06/03 0808 Pulse 77 06/03 0808 Resp 20 06/03 0808 B/P Mean 77.0 06/02 1512 PATIENT WEIGHT: Weight (lb): Weight (oz): 0 Weight (kg): 58.386420 Physical Exam Lungs: unlabored breathing Abdomen: soft, no abnormal tenderness Uterus: firm, involution appropriate Fundus: below the umbilicus Lochia: moderate Lacerations: Perineal laceration(s): left periurethral and v aginal sulcal Diagnosis, Assessment Plan Diagnosis, Assessment Plan Problem List/A P: 1. labor 2. 35 weeks gestation of Assessment: nml progress, breast feed ing difficulty, chronic iron deficiency anemia Plan: routine care, circumcision toda y, discharge tomorrow, CBC pending. Asx. Discussed importance of ir on on discharge (Hgb 9.6 on admission) Consultation(s): Consultation performed: enterprise resource planning consultant at 0906 RPT #:[id number] END OF REPORT 2020-06-02 14:08:00-00:00 [facility] ([facility]) OB Delivery Note REPORT#:[id number] REPORT STATUS: Signed DATE:06/02/20 TIME: 1408 PATIENT: KATHY PRASAD UNIT #: [id number] ROOM/BED: [address] : 00 AGE: 19 SEX: F ATTEND: Mary Baca MD ADM AUTHOR: Brenda Baca MD * ALL edits or amendments must be made on the [employer]/computer document * OB Delivery Nursing Documentation Review Nursing data: The data set between the solid lines has been im ported from nursing documentation. Any exceptions have been noted be low under Provider comments. _ ROM date: 06/02/20 ROM time: 0641 Membranes rupture method: AROM Amniotic fluid color: Clear Amniotic fluid amount: Steroids prior to arrival: Antibiotic prophylaxis given: evaluation at delivery: Delivery date infant A: Delivery time infant A: Birthweight (gm) A: Weight (lb) infant A: Weight (oz) infant A: Gender A: Male 1 minute infant A: 5 minutes A: 10 minutes A: Cord pH obtained A: Vacuum time infant A: Vacuum # pulls A: Vacuum # popoffs infant A: QBL at delivery: __ Provider comments on imported nursing data: [] Pre-delivery GBS status: GBS status: unknown Prophylaxis administered: penicillin Admission EGA: Weeks: 35 Days: 5 EGA at delivery (wks/days): 36 weeks Steroids Prior to Delivery Steroids prior to delivery: yes, delivery 24-34 weeks (prior to delivery) Baby A Information Baby A information Delivery date: 06/02/20 Delivery time: 131 status: live born Wt of baby (grams): 2460 Gender: male 1 minute: 8 5 minutes: 9 Presentation: vertex Anomalies: none noted ABG details Baby A Cord blood gases: not collected Vaginal Delivery Vaginal delivery: Labor: spontaneous Medications/Devices used: oxytocin Vaginal delivery: spontaneous Amniotic fluid: clear Anesthesia type: epidural anesthesia Episiotomy: none Episiotomy repair: not applicable Laceration repair: 3-0 suture (vicryl) Count: correct Mother's condition: mother stable 's condition: stable in room Lacerations: Perineal laceration(s): left periurethral and v aginal sulcal Extraction details OVD performed: no Shoulder dystocia present: no Additional comments: Delayed cord clamping for 60 seconds obtained Blood Loss/Details Blood loss at delivery: <1000 ml, no more than e xpected EBL at delivery (ml's): 300 at 1411 RPT #:[id number] END OF REPORT 2020-06-02 06:57:00-00:00 [facility] ([facility]) OB Intrapart Prog Note REPORT#:[id number] REPORT STATUS: Signed DATE:06/02/20 TIME: 656 PATIENT: KATHY PRASAD UNIT #: [id number] ROOM/BED: [address] : 00 AGE: 19 SEX: F ATTEND: Mary Baca MD ADM AUTHOR: Brenda Baca MD * ALL edits or amendments must be made on the [employer]/computer document * Subjective Subjective Admission EGA (wks/days): now 36w0d Comments: Comfortable with epidural Objective Nursing Documentation Review Nursing data: The data set between the solid lines has been im ported from nursing documentation. Any exceptions have been noted be low under Provider comments. __ ROM date: ROM time: __ Provider comments on imported nursing data: [] General VS: Last Documented: Result Date Time B/P Mean 71.0 06/02 0559 B/P 100/55 06/02 0559 Pulse 96 06/02 0559 Temp 98.3 06/01 1905 Resp 18 06/01 1447 Vital Signs Date Temp Pulse Resp B/P B/P Mean Pulse Ox FiO2 06/01-06/02 97.7-98.3 77-109 18 86-126/50-75 63 .0-92.0 PATIENT WEIGHT: Weight (lb): Weight (oz): 0 Weight (kg): 58.083431 Objective Cervical/ exam: Dilatation (cm): 7-8/100/0 by me AROM clear flu id presentation: cephalic Uterine activity: Monitor: toco Frequency (description): regular (q 3-5 min) FHR Evaluation Baby A: Baby A baseline: 130 bpm Baby A variability: moderate 6-25 bpm Baby A accelerations: 15 X 15 Baby A decelerations: none Baby A FHR category: category 1 Diagnosis, Assessment Plan Problem List/A P: 1. labor 2. 35 weeks gestation of Assessment: normal FHR pattern, spontaneous acti ve labor, stable, doing well Plan: anticipate vag delivery, continue current managmnt, epidural anesthesia, anesthesia consult, Continue PCN for GBS unknown and prematurity, s/p BMZ at 0659 RPT #:[id number] END OF REPORT 2020-06-02 01:07:00-00:00 [facility] ([facility]) OB Intrapart Prog Note REPORT#:[id number] REPORT STATUS: Signed DATE:06/02/20 TIME: 0107 PATIENT: KATHY PRASAD UNIT #: [id number] ROOM/BED: [address] : 00 AGE: 19 SEX: F ATTEND: Mary Baca MD ADM AUTHOR: Brenda Baca MD * ALL edits or amendments must be made on the [employer]/computer document * Subjective Subjective Admission EGA (wks/days): now 36w0d Comments: Comfortable with epidural Objective Nursing Documentation Review Nursing data: The data set between the solid lines has been im ported from nursing documentation. Any exceptions have been noted be low under Provider comments. __ ROM date: ROM time: __ Provider comments on imported nursing data: [] General VS: Last Documented: Result Date Time B/P Mean 80.0 06/02 0059 B/P 107/67 06/02 0059 Pulse 85 06/02 005 Temp 98.3 06/01 1905 Resp 18 06/01 1447 Vital Signs Date Temp Pulse Resp B/P B/P Mean Pulse Ox FiO 2 06/01-06/02 97.7-98.3 82-116 18 91-126/50-75 64 .0-92.0 PATIENT WEIGHT: Weight (lb): Weight (oz): 0 Weight (kg): 58.094370 Objective Cervical/ exam: Dilatation (cm): 6/100/-1 by me 0100a presentation: cephalic Uterine activity: Monitor: toco Frequency (description): regular (q 3-5 min) FHR Evaluation Baby A: Baby A baseline: 125 bpm Baby A variability: moderate 6-25 bpm Baby A accelerations: 15 X 15 Baby A decelerations: none Baby A FHR category: category 1 Diagnosis, Assessment Plan Problem List/A P: 1. labor 2. 35 weeks gestation of Assessment: normal FHR pattern, spontaneous acti ve labor, stable, doing well Plan: anticipate vag delivery, continue current managmnt, epidural anesthesia, anesthesia consult, Continue PCN for GBS unknown and prematurity at 0109 RPT #:[id number] END OF REPORT 2020-06-01 20:10:00-00:00 [facility]) OB Intrapart Prog Note REPORT#:[id number] REPORT STATUS: Signed DATE:06/01/20 TIME: 2009 PATIENT: KATHY PRASAD UN[facility] #[facility] [id number] [facility] AGE: 19 SEX: F ATTEND: Mary Baca MD ADM AUTHOR: Brenda Baca MD * ALL edits or amendments must be made on the [employer]/computer document * Subjective Subjective Admission EGA (wks/days): now 35w6d Comments: Increasing pain with contractions, received Stad ol immediately prior to my arrival Objective Nursing Documentation Review Nursing data: The data set between the solid lines has been im ported from nursing documentation. Any exceptions have been noted be low under Provider comments. __ ROM date: ROM time: __ Provider comments on imported nursing data: [] General VS: Last Documented: Result Date Time B/P Mean 75.0 06/01 1924 B/P 108/58 06/01 1924 Pulse 106 06/01 1924 Temp 97.7 06/01 1447 Resp 18 06/01 1447 Vital Signs Date Temp Pulse Resp B/P B/P Mean Pulse Ox FiO2 06/01 97.7 85-116 18 91-110/50-72 64.0-85.0 PATIENT WEIGHT: Weight (lb): Weight (oz): 0 Weight (kg): 58.498676 Objective Cervical/ exam: Dilatation (cm): 5/100/-1 by me at 2000, BBOW ( by me 1230) presentation: cephalic Pelvis exam: Clinically adequate for this fetus: yes Uterine activity: Monitor: toco Frequency (description): regular (q 3-5 min) FHR Evaluation Baby A: Baby A baseline: 125 bpm Baby A variability: moderate 6-25 bpm Baby A accelerations: 15 X 15 Baby A decelerations: none Baby A FHR category: category 1 Result Findings/Data: Laboratory Tests: 06/01 06/01 0204 0118 Chemistry Sodium (135 - 145 mEq/L) 137 Potassium (3.5 - 5.0 mEq/L) 4.4 Chloride (100 - 115 mEq/L) 103 Carbon Dioxide (22 - 31 mEq/L) 20 L Anion Gap (10 - 20) 18.60 BUN (7 - 18 mg/dL) 5 L Creatinine (0.5 - 1.0 mg/dL) 0.4 L Glomerular Filtr Rate (>60 ml/min) 206 Glucose (65 - 110 mg/dL) 68 Calcium (8.4 - 10.2 mg/dL) 8.7 Total Bilirubin (0.2 - 1.0 mg/dL) 0.3 AST (15 - 37 units/L) 42 H ALT (12 - 78 units/L) 19 Total Alk Phosphatase (46 - 116 units/L) 188 H Total Protein (6.3 - 8.2 gm/dL) 6.7 Albumin (3.4 - 4.8 gm/dL) 2.7 L Hematology WBC (6.6 - 12.1 K/mm3) 14.6 H RBC (3.45 - 5.01 M/mm3) 3.72 Hgb (10.7 - 13.9 g/dL) 9.6 L Hct (32.1 - 42.1 %) 30.3 L MCV (84.1 - 94.8 fL) 82 L MCH (27 - 35 pg) 25.8 L MCHC (32.2 - 34.1 gm/dL) 31.7 L RDW (12.4 - 16.5 %) 13.3 Plt Count (133 - 385 K/mm3) 332 MPV (9.1 - 12.7 fl) 10.0 Neut % (Auto) (56.5 - 79.4 %) 72.8 Lymph % (Auto) (14.3 - 34.3 %) 19.0 [place] % (Auto) (5.1 - 10.4 %) 7.1 Eos % (Auto) (0.1 - 3.0 %) 0.1 Baso % (Auto) (0.1 - 1.0 %) 0.2 Neut # (Auto) (K/mm3) 10.6 Lymph # (Auto) (K/mm3) 2.8 [place] # (Auto) (K/mm3) 1.0 Eos # (Auto) (K/mm3) 0.01 Baso # (Auto) (K/mm3) 0.0 Serology Treponema pallidum Ab (NONREACTIVE) NONREACTIVE Hep Bs Antigen (NONREACTIVE) NONREACTIVE Hepatitis C Antibody (NONREACTIVE) NONREACTIVE Hep C Ab Signal/Cutoff (<0.80) 0.09 HIV 1 2 Antibody (NONREACTIVE) NONREACTIVE Urines Urine Color (YELLOW) STRAW Urine Appearance (CLEAR) Slightly-Cloudy Urine pH (5 - 9) 7.0 Ur Specific [place] (1.001 - 1.035) 1.005 Urine Protein (NEG) NEGATIVE Urine Glucose (UA) (NEG) NEGATIVE Urine Ketones (NEG) 1+ H Urine Blood (NEG) 2+ H Urine Nitrite (NEG) NEG Urine Bilirubin (NEG) NEGATIVE Urine Urobilinogen (NEG mg/dL) NEGATIVE Ur Leukocyte Esterase (NEG) 3+ H Urine RBC (NONE SEEN #/hpf) 6-10 H Urine WBC (NONE SEEN #/hpf) 2-5 H Ur Epithelial Cells (RARE - FEW #/HPF) RARE Urine Bacteria (RARE - FEW /HPF) RARE Urine Mucus (NONE SEEN) RARE 06/01 0051 Serology SARS-CoV-2 Ag (Rapid) (NEGATIVE) NEGATIVE Microbiology: Date/Time Procedure - Status Source Growth 06/01 012 Group B Streptococcus DNA Probe - RE S VAGINAL 06/01 0120 Streptococcus Culture - RES VAGINAL 06/01 0107 Urine Culture - RECD URINE 06/01 0054 Streptococcus Culture - CAN GEN OTHER Cancelled: DUPLICATE Recent Impressions: ULTRASOUND - US FLW UP 06/01 0131 Report Impression - Status: SIGNED Entered: 06/01/20207 IMPRESSION: Single live intrauterine at 34 weeks 6 days as above described. CHRIS 11.8 cm. The structures are not individually evalua robert on this examination, but no abnormality is demonstrated. GENERAL OBSERVATIONS REGARDING ULTRASO UND: 1. A normal or negative sonogram report should n ot delay further investigation of a clinically suspicious or abno rmal . 2. position or overlap of parts may prevent complete evaluation of the fetus. 3. Congenital and developmental abnormalities ar e not always sonographically visualized. 4. Repeat sonograms may be necessary depending o n the clinical development during . SL: TPAINTER-H Impression By: [email or web address] - Kaushik Reyna MD Diagnosis, Assessment Plan Problem List/A P: 1. labor 2. 35 weeks gestation of Assessment: normal FHR pattern, spontaneous acti ve labor, stable, doing well Plan: anticipate vag delivery, anesthesia consul t, moving into spontaneous active labor. Will give BMZ #2 now (6 hours mandy y). Patient desires epidural Plan discussed with: patient, spouse/partner at 2011 RPT #:[id number] END OF REPORT 2020-06-01 13:09:00-00:00 [facility] ([facility]) OB Intrapart Prog Note REPORT#:[id number] REPORT STATUS: Signed DATE:06/01/20 TIME: 1309 PATIENT: KATHY PRASAD UNIT #: [id number] ROOM/BED: [address] : 00 AGE: 19 SEX: F ATTEND: Mary Baca MD ADM AUTHOR: Brenda Baca MD * ALL edits or amendments must be made on the el [employer]/computer document * Subjective Subjective Admission EGA (wks/days): now 35w6d Comments: Still with painful contractions, q5 minutes. Has required Stadol x 3 since admission early this morning. Objective Nursing Documentation Review Nursing data: The data set between the solid lines has been im ported from nursing documentation. Any exceptions have been noted be low under Provider comments. __ ROM date: ROM time: __ Provider comments on imported nursing data: [] General VS: Last Documented: Result Date Time B/P Mean 84.0 06/01 1148 B/P 109/68 06/01 1148 Pulse 93 06/01 1148 Vital Signs Date Temp Pulse Resp B/P B/P Mean Pulse Ox FiO 2 06/01 85-116 108-110/58-72 75.0-85.0 PATIENT WEIGHT: Weight (lb): Weight (oz): 0 Weight (kg): 58.489098 Objective Cervical/ exam: Dilatation (cm): 3 (by me 1230) Effacement (%): 100 station: - 2 presentation: cephalic FHR Evaluation Baby A: Baby A baseline: 125 bpm Baby A variability: moderate 6-25 bpm Baby A accelerations: 15 X 15 Baby A decelerations: none Baby A FHR category: category 1 Result Findings/Data: Laboratory Tests: 06/01 06/01 0204 0118 Chemistry Sodium (135 - 145 mEq/L) 137 Potassium (3.5 - 5.0 mEq/L) 4.4 Chloride (100 - 115 mEq/L) 103 Carbon Dioxide (22 - 31 mEq/L) 20 L Anion Gap (10 - 20) 18.60 BUN (7 - 18 mg/dL) 5 L Creatinine (0.5 - 1.0 mg/dL) 0.4 L Glomerular Filtr Rate (>60 ml/min) 206 Glucose (65 - 110 mg/dL) 68 Calcium (8.4 - 10.2 mg/dL) 8.7 Total Bilirubin (0.2 - 1.0 mg/dL) 0.3 AST (15 - 37 units/L) 42 H ALT (12 - 78 units/L) 19 Total Alk Phosphatase (46 - 116 units/L) 188 H Total Protein (6.3 - 8.2 gm/dL) 6.7 Albumin (3.4 - 4.8 gm/dL) 2.7 L Hematology WBC (6.6 - 12.1 K/mm3) 14.6 H RBC (3.45 - 5.01 M/mm3) 3.72 Hgb (10.7 - 13.9 g/dL) 9.6 L Hct (32.1 - 42.1 %) 30.3 L MCV (84.1 - 94.8 fL) 82 L MCH (27 - 35 pg) 25.8 L MCHC (32.2 - 34.1 gm/dL) 31.7 L RDW (12.4 - 16.5 %) 13.3 Plt Count (133 - 385 K/mm3) 332 MPV (9.1 - 12.7 fl) 10.0 Neut % (Auto) (56.5 - 79.4 %) 72.8 Lymph % (Auto) (14.3 - 34.3 %) 19.0 [place] % (Auto) (5.1 - 10.4 %) 7.1 Eos % (Auto) (0.1 - 3.0 %) 0.1 Baso % (Auto) (0.1 - 1.0 %) 0.2 Neut # (Auto) (K/mm3) 10.6 Lymph # (Auto) (K/mm3) 2.8 [place] # (Auto) (K/mm3) 1.0 Eos # (Auto) (K/mm3) 0.01 Baso # (Auto) (K/mm3) 0.0 Serology Treponema pallidum Ab (NONREACTIVE) NONREACTIVE Hep Bs Antigen (NONREACTIVE) NONREACTIVE Hepatitis C Antibody (NONREACTIVE) NONREACTIVE Hep C Ab Signal/Cutoff (<0.80) 0.09 HIV 1 2 Antibody (NONREACTIVE) NONREACTIVE Urines Urine Color (YELLOW) STRAW Urine Appearance (CLEAR) Slightly-Cloudy Urine pH (5 - 9) 7.0 Ur Specific [place] (1.001 - 1.035) 1.005 Urine Protein (NEG) NEGATIVE Urine Glucose (UA) (NEG) NEGATIVE Urine Ketones (NEG) 1+ H Urine Blood (NEG) 2+ H Urine Nitrite (NEG) NEG Urine Bilirubin (NEG) NEGATIVE Urine Urobilinogen (NEG mg/dL) NEGATIVE Ur Leukocyte Esterase (NEG) 3+ H Urine RBC (NONE SEEN #/hpf) 6-10 H Urine WBC (NONE SEEN #/hpf) 2-5 H Ur Epithelial Cells (RARE - FEW #/HPF) RARE Urine Bacteria (RARE - FEW /HPF) RARE Urine Mucus (NONE SEEN) RARE 06/01 0051 Serology SARS-CoV-2 Ag (Rapid) (NEGATIVE) NEGATIVE Microbiology: Date/Time Procedure - Status Source Growth 06/01 120 Group B Streptococcus DNA Probe - RE S VAGINAL 06/01 120 Streptococcus Culture - RES VAGINAL 06/01 107 Urine Culture - RECD URINE 06/01 54 Streptococcus Culture - CAN GEN OTHER Cancelled: DUPLICATE Recent Impressions: ULTRASOUND - US FLW UP 06/01 131 Report Impression - Status: SIGNED Entered: 06/01/2020226 IMPRESSION: Single live intrauterine at 34 weeks 6 days as above described. CHRIS 11.8 cm. The structures are not individually evalua robert on this examination, but no abnormality is demonstrated. GENERAL OBSERVATIONS REGARDING ULTRASO UND: 1. A normal or negative sonogram report should n ot delay further investigation of a clinically suspicious or abno rmal . 2. position or overlap of parts may prevent complete evaluation of the fetus. 3. Congenital and developmental abnormalities ar e not always sonographically visualized. 4. Repeat sonograms may be necessary depending o n the clinical development during . SL: TPAINTER-H Impression By: [email or web address] - Kaushik Reyna MD Diagnosis, Assessment Plan Problem List/A P: 1. labor 2. 35 weeks gestation of Free Text A P: 1. PTL: arrested but patient still with painful contractions requiring multiple doses of IV medication. Will keep monitoring on L D and reassess this PM. Continue procardia for tocolysis through steroid window 2. Dirty UA: 3+ leuk esteras e 2+ blood and rare epis, will send culture and give dose of rocephin x 1 Asymptomatic for UTI 3. SIUP @ 35w6d: FHTs category I, reassuring. S/ P BMZ x 1, next dose due tomorrow 0200 4. GBS unknown - rapid GBS negative, culture unf ortunately cancelled, will continue PCN at 1314 RPT #:[id number] END OF REPORT 2020-06-01 07:57:00-00:00 [facility] OB Intrapart Prog Note REPORT#:[id number] REPORT STATUS: Signed DATE:06/01/20 TIME: 0757 PATIENT: KATHY PRASAD UNIT #: [id number] ROOM/BED: [address] : 00 AGE: 19 SEX: F ATTEND: Mary Baca MD ADM AUTHOR: Cris Hardy MD * ALL edits or amendments must be made on the el [employer] Software/computer document * Subjective Subjective Comments: Pt got 2 doses of nifedepine and 1 dose of stado l, was able to sleep. She states she thinks the back pain is worsening and her ctx are stronger. NO LOF, VB. Objective Nursing Documentation Review Nursing data: The data set between the solid lines has been im ported from nursing documentation. Any exceptions have been noted be low under Provider comments. __ ROM date: ROM time: __ Provider comments on imported nursing data: [] General VS: Last Documented: Result Date Time B/P Mean 83.0 06/01 608 B/P 108/68 06/01 0608 Pulse 85 12/13 0608 Vital Signs Date Temp Pulse Resp B/P B/P Mean Pulse Ox FiO2 06/01 85-116 108/58-68 75.0-83.0 PATIENT WEIGHT: Weight (lb): Weight (oz): 0 Weight (kg): 58.142408 Objective Cervical/ exam: Dilatation (cm): 3 (by Hendryx 06/01 44) Effacement (%): 100 station: - 2 presentation: cephalic FHR Evaluation Baby A: Baby A baseline: 125 bpm Baby A variability: moderate 6-25 bpm Baby A accelerations: 15 X 15 Baby A decelerations: none Baby A FHR category: category 1 Result Findings/Data: Laboratory Tests: 06/01 06/01 0204 0118 Chemistry Sodium (135 - 145 mEq/L) 137 Potassium (3.5 - 5.0 mEq/L) 4.4 Chloride (100 - 115 mEq/L) 103 Carbon Dioxide (22 - 31 mEq/L) 20 L Anion Gap (10 - 20) 18.60 BUN (7 - 18 mg/dL) 5 L Creatinine (0.5 - 1.0 mg/dL) 0.4 L Glomerular Filtr Rate (>60 ml/min) 206 Glucose (65 - 110 mg/dL) 68 Calcium (8.4 - 10.2 mg/dL) 8.7 Total Bilirubin (0.2 - 1.0 mg/dL) 0.3 AST (15 - 37 units/L) 42 H ALT (12 - 78 units/L) 19 Total Alk Phosphatase (46 - 116 units/L) 188 H Total Protein (6.3 - 8.2 gm/dL) 6.7 Albumin (3.4 - 4.8 gm/dL) 2.7 L Hematology WBC (6.6 - 12.1 K/mm3) 14.6 H RBC (3.45 - 5.01 M/mm3) 3.72 Hgb (10.7 - 13.9 g/dL) 9.6 L Hct (32.1 - 42.1 %) 30.3 L MCV (84.1 - 94.8 fL) 82 L MCH (27 - 35 pg) 25.8 L MCHC (32.2 - 34.1 gm/dL) 31.7 L RDW (12.4 - 16.5 %) 13.3 Plt Count (133 - 385 K/mm3) 332 MPV (9.1 - 12.7 fl) 10.0 Neut % (Auto) (56.5 - 79.4 %) 72.8 Lymph % (Auto) (14.3 - 34.3 %) 19.0 [place] % (Auto) (5.1 - 10.4 %) 7.1 Eos % (Auto) (0.1 - 3.0 %) 0.1 Baso % (Auto) (0.1 - 1.0 %) 0.2 Neut # (Auto) (K/mm3) 10.6 Lymph # (Auto) (K/mm3) 2.8 [place] # (Auto) (K/mm3) 1.0 Eos # (Auto) (K/mm3) 0.01 Baso # (Auto) (K/mm3) 0.0 Serology Treponema pallidum Ab (NONREACTIVE) NONREACTIVE Hep Bs Antigen (NONREACTIVE) NONREACTIVE Hepatitis C Antibody (NONREACTIVE) NONREACTIVE Hep C Ab Signal/Cutoff (<0.80) 0.09 HIV 1 2 Antibody (NONREACTIVE) NONREACTIVE Urines Urine Color (YELLOW) STRAW Urine Appearance (CLEAR) Slightly-Cloudy Urine pH (5 - 9) 7.0 Ur Specific [place] (1.001 - 1.035) 1.005 Urine Protein (NEG) NEGATIVE Urine Glucose (UA) (NEG) NEGATIVE Urine Ketones (NEG) 1+ H Urine Blood (NEG) 2+ H Urine Nitrite (NEG) NEG Urine Bilirubin (NEG) NEGATIVE Urine Urobilinogen (NEG mg/dL) NEGATIVE Ur Leukocyte Esterase (NEG) 3+ H Urine RBC (NONE SEEN #/hpf) 6-10 H Urine WBC (NONE SEEN #/hpf) 2-5 H Ur Epithelial Cells (RARE - FEW #/HPF) RARE Urine Bacteria (RARE - FEW /HPF) RARE Urine Mucus (NONE SEEN) RARE 06/01 0051 Serology SARS-CoV-2 Ag (Rapid) (NEGATIVE) NEGATIVE Microbiology: Date/Time Procedure - Status Source Growth 06/01 120 Group B Streptococcus DNA Probe - RE S VAGINAL 06/01 012 Streptococcus Culture - RES VAGINAL 06/01 0107 Urine Culture - RECD URINE 06/01 005 Streptococcus Culture - CAN GEN OTHER Cancelled: DUPLICATE Recent Impressions: ULTRASOUND - US FLW UP 06/01 131 Report Impression - Status: SIGNED Entered: 06/01/2020 0227 IMPRESSION: Single live intrauterine at 34 weeks 6 days as above described. CHRIS 11.8 cm. The structures are not individually evalua robert on this examination, but no abnormality is demonstrated. GENERAL OBSERVATIONS REGARDING ULTRASO UND: 1. A normal or negative sonogram report should n ot delay further investigation of a clinically suspicious or abno rmal . 2. position or overlap of parts may prevent complete evaluation of the fetus. 3. Congenital and developmental abnormalities ar e not always sonographically visualized. 4. Repeat sonograms may be necessary depending o n the clinical development during . SL: TPAINTER-H Impression By: [email or web address] - Kaushik Reyna MD Diagnosis, Assessment Plan Problem List/A P: 1. labor 2. 35 weeks gestation of Free Text A P: 19 y/o @35w6d admited in prterm labor -cx same for me, but pt states ctx are worse; wi ll keep here on L D for now -GBS rapid negative -Cat I FHT -ROBERT hose at 0815 RPT #:[id number] END OF REPORT 2020-06-01 01:18:00-00:00 [facility] ([facility]) OB Admission / H P REPORT#:[id number] REPORT STATUS: Signed DATE:06/01/20 TIME: 0118 PATIENT: KATHY PRASAD UNIT #: [id number] ROOM/BED: [facility] : 00 AGE: 19 SEX: F ATTEND: Mary Baca MD ADM AUTHOR: Cris Hardy MD * ALL edits or amendments must be made on the el ectronic/computer document * OB History Nursing Documentation Review Nursing data: The data set between the solid lines has been im ported from nursing documentation. Any exceptions have been noted be low under Provider comments. Current data Steroids prior to arrival: ROM date: ROM time: EDC date: 06/30/20 Prior history : 1 Para: 0 Term: : Abortions spontaneous: Abortions induced: Living children: Ectopic: Stillbirths: Live births: deaths: Number of previous C/S: Reported maternal labs/data Blood type: Rh type: Rubella: Hepatitis B: HIV exposure test: VDRL: Group B beta strep: Rho(D) immune globulin this preg: Monitor mode - UA: Feeding preference: Provider comments on imported nursing data: [] Chief complaint: uterine contractions HPI: Kathy is a 19 y/o @35w6d who has had regular painful ctx since this PM. No LOF, no VB, normal FM. Sheyla gan had been told to come in at 8pm but did not arrive until 2345. In the MAC, she was seen by the hospitalist who determined she was 3cm. Patient is admitted for management of prete rm labor. history: : 1 Term: 0 : 0 Abortus: 0 Living children: 0 Complications (prev preg): none Previous : none Current : Best EDC: 06/30/20 Admission EGA (weeks) 35 Admission EGA (days) 5 Steroids prior to delivery: being given today Notes: LABS: Blood type/ AB screen: O positive, antibody neg CBC: 11.8/36.5 < 334 Rubella: immune HIV: negative HepBsAg: negative RPR: non-reactive Urine culture: no growth Pap: too young GC/CT/Trich: negative MSaFP: negative Genetic testing: NIPT negative, its a boy! Carrier screening: negative Hgb Electro: negative Anatomy U/S (UT): breech posterior place nta EFW 37%ile, Right 4mm pyelectasis, recommend 30 week follow-up Growth US 1522g 22%ile cephalic 2nd trimester labs: CBC: 10.5/31.1 < 316 1hr GTT: 98 3rd trimester Hgb/Hct: 3rd trimester RPR: 3rd trimester HIV: GBS: Past medical history: denies PMH Past surgical history: denies PSH Social history: no alcohol use, no tobacco use, no drug use Family history Relation not specified for: Family History: Unremarkable Medications: Home Medications: PNV WITH FE FUMARATE/FA () 1 TAB PO SAMANTHA Y Allergies Coded Allergies: No Known Allergies (05/31/20) Objective General VS: PATIENT WEIGHT: Weight (lb): Weight (oz): 0 Weight (kg): 58.340962 123/82 HR 99 Temp 98.2 Physical Exam Cardiac: regular rate and rhythm Lungs: clear to auscultation Musculoskeletal: no CVA tenderness Cervical/ exam: Dilatation (cm): 3 (by Dr Banuelos 06/01 39) Effacement (%): 70 Suspected macrosomia: No station: - 2 presentation: cephalic (per Dr Banuelos) Membranes: Membranes: Intact Baby A: Baby A baseline: 125 bpm Baby A variability: moderate 6-25 bpm Baby A accelerations: 15 X 15 Baby A decelerations: none Baby A FHR category: category 1 Result Findings/Data: Laboratory Tests: 06/01 51 Serology SARS-CoV-2 Ag (Rapid) (NEGATIVE) NEGATIVE Microbiology: Date/Time Procedure - Status Source Growth 06/01 119 Group B Streptococcus DNA Probe - OR D VAGINAL 06/01 107 Urine Culture - ORD URINE 06/01 54 Streptococcus Culture - ORD GEN OTHER Diagnosis, Assessment Plan Diagnosis, Assessment Plan Problem List/A P: 1. labor 2. 35 weeks gestation of Free Text A P: 19 y/o @35w6d admitted with labor -IVF -culture for GBS and urine -growth scan -PCN for GBS unknown -BMZ x2 -Nifedepine po -obs on L D -ROBERT laura at 0129 RPT #:[id number] END OF REPORT 2020-06-01 01:18:00-00:00 [facility] ([facility]) OB Admission / H P REPORT#:[id number] REPORT STATUS: Signed DATE:06/01/20 TIME: 0118 PATIENT: KATHY PRASAD UNIT #: [id number] ROOM/BED: [facility] : 00 AGE: 19 SEX: F ATTEND: Mary Baca MD ADM AUTHOR: rCis Hardy MD * ALL edits or amendments must be made on the el ectronic/computer document * See Addendum OB History Nursing Documentation Review Nursing data: The data set between the solid lines has been im ported from nursing documentation. Any exceptions have been noted be low under Provider comments. Current data Steroids prior to arrival: ROM date: ROM time: EDC date: 06/30/20 Prior history : 1 Para: 0 Term: : Abortions spontaneous: Abortions induced: Living children: Ectopic: Stillbirths: Live births: deaths: Number of previous C/S: Reported maternal labs/data Blood type: Rh type: Rubella: Hepatitis B: HIV exposure test: VDRL: Group B beta strep: Rho(D) immune globulin this preg: Monitor mode - UA: Feeding preference: Provider comments on imported nursing data: [] Chief complaint: uterine contractions HPI: Kathy is a 19 y/o @35w6d who has had regular painful ctx since this PM. No LOF, no VB, normal FM. Sh elvia had been told to come in at 8pm but did not arrive until 2345. In the MAC, she was seen by the hospitalist who determined she was 3cm. Patient is admitted for management of prete rm labor. history: : 1 Term: 0 : 0 Abortus: 0 Living children: 0 Complications (prev preg): none Previous : none Current : Best EDC: 06/30/20 Admission EGA (weeks) 35 Admission EGA (days) 5 Steroids prior to delivery: being given today Notes: LABS: Blood type/ AB screen: O positive, antibody neg CBC: 11.8/36.5 < 334 Rubella: immune HIV: negative HepBsAg: negative RPR: non-reactive Urine culture: no growth Pap: too young GC/CT/Trich: negative MSaFP: negative Genetic testing: NIPT negative, its a boy! Carrier screening: negative Hgb Electro: negative Anatomy U/S (UT): breech posterior place nta EFW 37%ile, Right 4mm pyelectasis, recommend 30 week follow-up Growth US 1522g 22%ile cephalic 2nd trimester labs: CBC: 10.5/31.1 < 316 1hr GTT: 98 3rd trimester Hgb/Hct: 3rd trimester RPR: 3rd trimester HIV: GBS: Past medical history: denies PMH Past surgical history: denies PSH Social history: no alcohol use, no tobacco use, no drug use Family history Relation not specified for: Family History: Unremarkable Medications: Home Medications: PNV WITH FE FUMARATE/FA () 1 TAB PO SAMANTHA Y Allergies Coded Allergies: No Known Allergies (05/31/20) Objective General VS: PATIENT WEIGHT: Weight (lb): Weight (oz): 0 Weight (kg): 58.820108 123/82 HR 99 Temp 98.2 Physical Exam Cardiac: regular rate and rhythm Lungs: clear to auscultation Musculoskeletal: no CVA tenderness Cervical/ exam: Dilatation (cm): 3 (by Dr Banuelos 06/01 39) Effacement (%): 70 Suspected macrosomia: No station: - 2 presentation: cephalic (per Dr Banuelos) Membranes: Membranes: Intact Baby A: Baby A baseline: 125 bpm Baby A variability: moderate 6-25 bpm Baby A accelerations: 15 X 15 Baby A decelerations: none Baby A FHR category: category 1 Result Findings/Data: Laboratory Tests: 06/01 51 Serology SARS-CoV-2 Ag (Rapid) (NEGATIVE) NEGATIVE Microbiology: Date/Time Procedure - Status Source Growth 06/01 119 Group B Streptococcus DNA Probe - OR D VAGINAL 06/01 107 Urine Culture - ORD URINE 06/01 54 Streptococcus Culture - ORD GEN OTHER Diagnosis, Assessment Plan Diagnosis, Assessment Plan Problem List/A P: 1. labor 2. 35 weeks gestation of Free Text A P: 19 y/o @35w6d admitted with labor -IVF -culture for GBS and urine -growth scan -PCN for GBS unknown -BMZ x2 -Nifedepine po -obs on L D -ROBERT hose at 0129 Addendum 1: 06/01/20228 by Cris Hardy MD XYN=1012w cephalic CHRIS=11.8cm at 0230 RPT #:[id number] END OF REPORT 2020-06-01 00:45:00-00:[address] [facility] ([facility]) EMERGENCY PROVIDER REPORT REPORT#:[id number] REPORT STATUS: Signed DATE:06/01/20 TIME: 44 PATIENT: KATHY PRASAD UNIT #: [id number] ROOM/BED: AGE: 19 SEX: F PCP PHYS: Brenda Baca MD SERVICE AUTHOR: Rosa Banuelos MD * ALL edits or amendments must be made on the el [email or web address]/computer document * JEB History Chief complaint: uterine contractions HPI: 19y/o EDC: 06/30/2020 @ 35 weeks 6 days GA p resenting to JEB c/o Ctx started q 10min increasing in frequency to q 5-6 min no lof/vb/+FM. denies any covid sx Past medical history: denies PMH Past surgical history: denies PSH Social history: single, no alcohol use, no tobac co use, no drug use Family history Relation not specified for: Family History: Unremarkable Medications: Home Medications: Medication Dose/Rte/Freq Days Qty Entered Last Max Daily Dose Reviewed PNV WITH FE 1 TAB PO DAILY 05/31/20 FUMARATE/FA 2348 () Strength: 1 EACH TAB Allergies Coded Allergies: No Known Allergies (05/31/20) Review of Systems Constitutional: Denies: chills, fatigue, fev er, generalized weakness, lethargy, malaise, recent wt loss, other. Skin: Denies: swelling. Allergy/Immun: Denies: rhinorrhea, sneezing. Eyes: Denies: visual loss/blurred. ENT: Denies: nasal congestion, sinus problem, sore th roat, throat pain. Respiratory: Denies: MIXON (dyspnea on exertion), hemoptysis, n on productive cough, parox nocturnal dyspnea, pleurisy, pleuritic pain, pneumonia, productive cough (sputum ), SOB, wheezing, other. Cardiovascular: Denies: chest pain, MIXON (dyspnea on exer tion), edema, orthopnea, palpitations, parox nocturnal dyspnea, other. GI: Reports: abdominal pain. Denies: anorexia, const ipation, diarrhea, dysphagia, GERD, hematemesis, hematochezia, hiatal hernia, melena, nausea, rectal pain, vomiting, other. : Reports: . Denies: d ysuria, flank pain, frequency, hematuria, nocturia, pelvic pain, urgency, urinary retention, vaginal bleeding, vaginal discharge, other. Musculoskeletal: Denies: extremity pain, extremity swelling, lumb ar pain, myalgias. Neuro: Denies: bladder dysfunction, bowel dysfunction, change in LOC, confusion, dizziness, focal weakness, gait problem, headach e, lightheaded, numbness, seizure, slurred speech, spinning sensation, syn cope, unable to speak, vision change, weakness, other. Psych: Denies: anxiety, depression, homicidal ideation, suicidal ideation. Objective General VS: PATIENT WEIGHT: Weight (lb): Weight (oz): 0 Weight (kg): 58.836884 T:98.2F BP: 123/82 P: 99 R:16 Physical Exam HEENT: normocephalic w/o injury Cardiac: regular rate and rhythm Lungs: clear to auscultation Breasts: deferred Neuro: Exam: alert, oriented x3, normal speech Abdomen: gravid, soft, no abnormal tenderness, n ormoactive bowel sounds Musculoskeletal: no CVA tenderness Uterine activity: Monitor: toco Frequency (description): irritability, regular (q 4-6 min) Cervical/ exam: Dilatation (cm): 3 Effacement (%): 70 station: - 3 presentation: cephalic FHR evaluation: Baseline: 140 bpm Variability: moderate 6-25 bpm Accelerations: 15 X 15 Decelerations: none FHR category: category 1 Membranes: Membranes: Intact Lower extremities: Edema: none Calf tenderness: negative Diagnosis, Assessment Plan Diagnosis, Assessment Plan Free Text A P: IUP @ 35 week 6 days GA in labor AVSS ca tegory 1 Plan: Admit to apu sono ivf nifedipine if needed gbs culture continue to observe d/w Dr. Hardy plan per Dr. Hardy. pt care no w under Dr. Hardy at 0051 RPT #:[id number] END OF REPORT
[2023-02-17 18:57] LABS: Absolute Lymphocytes (CBC) 2.8 K/uL (0.7-4.9); Hematocrit 37.4 % (36.0-45.0); Lymphocytes % 30.8 % (15.3-44.8); MCV 87.2 fL (80-100); Platelets 347 thou/uL (152-406); RBC Red Blood Cell Count 4.28 M/uL (3.86-4.86)
[2023-02-17 19:03] LABS: Specific Gravity 1.015 (1.005-1.030)
[2023-02-17 19:07] LABS: Specific Gravity 1.015 (1.005-1.030); Urine Bacteria None Seen /HPF (<20); Urine Bilirubin NEGATIVE (Negative); Urine Blood Negative (Negative); Urine Clarity Extremely Turbid (Clear); Urine Color Light-Yellow (Yellow); Urine Glucose NEGATIVE (Negative); Urine Mucus Slight /HPF (None Seen); Urine Protein NEGATIVE (Negative); Urine RBC <5 /HPF (None Seen); Urine Urobilinogen Normal (Normal); Urine pH 6.5 (5.0-7.0)
[2023-02-17 19:13] LABS: Albumin 3.3 g/dL (3.4-5.0); Bilirubin Total 0.2 mg/dL (0.2-1.0); Potassium 4.1 mEq/L (3.5-5.1); Protein, Total 7.3 g/dL (6.4-8.2)
--- NOTE | 2023-02-17 19:59 | RAD REPORT ---
EXAM DESCRIPTION: CT - Abdomen Pelvis W Contrast - 02/17/2023 7:37 pm CLINICAL HISTORY: ABD PAIN COMPARISON: Abdomen Pelvis W Contrast dated 01/22/2021 TECHNIQUE: Thin cut axial CT imaging of the abdomen and pelvis was performed following intravenous a dministration of 100 mL Isovue 300. Multiplanar reformats were generated and reviewed. All CT scans are performed using dose optimization technique as appropriate and may include automated exposure control or mA/KV adjustment according to patient size. FINDINGS: No suspicious findings in the lung bases. The liver, adrenal glands, spleen, and pancreas show no suspicious findings. Gallbladder is decompres sed limiting evaluation. No adjacent fat stranding or pericholecystic fluid. No evidence of intra or extrahepatic biliary ductal dilation. Symmetric renal function is seen with no hydronephrosis or suspicious renal mass. No dilated bowel loops or bowel wall thickening. No free air, free fluid or inflammatory stranding. A ppendix is unremarkable. No hernia, mass or bulky lymphadenopathy. The urinary bladder is without sig nificant finding. No suspicious bony findings. IMPRESSION: No acute intra-abdominal process.
--- NOTE | 2023-02-17 20:05 | ER ---
Nurse's Notes [facility] Name: Sisi Aldrich Age: 22 yrs Sex: Female : 2000 Arrival Date: 02/17/2023 Time: 18:03 Bed 11 Private MD: Diagnosis: Upper abdominal pain, unspecified;Diarrhea, unspecified Presentation: 02/17 18:22 Chief complaint: Patient states: she has been having abdominal pain for a couple of ap3 weeks, but it has gotten worse today. patient states she has also had Diarrhea since 02/16/23. Coronavirus screen: At this time, the client does not indicate any symptoms associated with coronavirus-19. Ebola Screen: No symptoms or risks identified at this time. Risk Assessment: Do you want to hurt yourself or someone else? Patient reports no desire to harm self or others. Onset of symptoms is unknown. 18:22 Method Of Arrival: Ambulatory ap3 18:22 Acuity: KAVIN 3 ap3 18:24 Initial Sepsis Screen: Does the patient meet any 2 criteria? No. Patient's initial ap3 sepsis screen is negative. Does the patient have a suspected source of infection? No. Patient's initial sepsis screen is negative. Triage Assessment: 18:23 General: Appears in no apparent distress. Behavior is calm, cooperative, appropriate ap3 for age. Pain: Complains of pain in left upper quadrant Pain currently is 6 out of 10 on a pain scale. Pain began gradually. Neuro: Level of Consciousness is awake, alert, obeys commands, Oriented to person, place, time, situation. Cardiovascular: Patient's skin is warm and dry. Respiratory: Airway is patent Respiratory effort is even, unlabored, Respiratory pattern is regular, symmetrical. GI: Reports lower abdominal pain, upper abdominal pain, diarrhea. Historical: - Allergies: 18:23 No Known Allergies; ap3 - Home Meds: 18:23 control [Active]; ap3 - PMHx: 18:23 None; ap3 - PSHx: 18:23 Tonsillectomy; ap3 - Immunization history:: Client reports receiving the 2nd dose of the Covid vaccine. - Social history:: Smoking status: Reported history of juuling and/or vaping. Screenin:24 [facility] ED Fall Risk Assessment (Adult) History of falling in the last 3 months, ap3 including since admission No falls in past 3 months (0 pts). Abuse screen: Denies threats or abuse. Nutritional screening: No deficits noted. Tuberculosis screening: No symptoms or risk factors identified. Assessment: 18:29 General: Appears in no apparent distress. Behavior is calm, cooperative. Pain: mb9 Complains of pain in abdomen Pain radiates to left upper quadrant Quality of pain is described as throbbing, Pain began gradually, Is intermittent. Neuro: Dang Agitation-Sedation Scale (RASS): 0 - Alert and Calm Level of Consciousness is awake, alert, obeys commands, Oriented to person, place, time, situation, Appropriate for age. Cardiovascular: Patient's skin is warm and dry. Respiratory: Airway is patent Respiratory effort is even, unlabored, Respiratory pattern is regular, symmetrical. GI: Abdomen is flat, non-distended, Bowel sounds present X 4 quads. Abd is soft Abdomen is tender to palpation in left upper quadrant Reports diarrhea. Derm: Skin is pink, warm \T\ dry. Musculoskeletal: Range of motion: intact in all extremities. Vital Signs: 18:22 BP 116 / 71; Pulse 82; Resp 19; Temp 98.2; Pulse Ox 100% ; Weight 56.7 kg; Pain 6/10; ap3 20:18 BP 104 / 72; Pulse 82; Resp 16; Pulse Ox 100% on R/A; Pain 0/10; pf1 18:22 Pain Scale: Adult ap3 20:18 Pain Scale: Adult pf1 ED Course: 18:05 Patient arrived in ED. ts1 18:11 Nydia Huddleston PA-C is PHCP. sb4 18:11 Iam Kc DO is Attending Physician. sb4 18:23 Triage completed. ap3 18:24 Arm band placed on right wrist. ap3 18:29 Helen Hall, DIPESH is Primary Nurse. mb9 18:30 Placed in gown. Bed in low position. Call light in reach. Side rails up X 1. Client mb9 placed on continuous cardiac and pulse oximetry monitoring. NIBP monitoring applied. 18:44 CBC with Diff Sent. mb9 18:44 CMP Sent. mb9 18:44 Lipase Sent. mb9 18:44 Test, Urine Sent. mb9 18:44 Urinalysis w/ reflexes Sent. mb9 18:44 Inserted saline lock: 20 gauge in right antecubital area, using aseptic technique. mb9 19:15 No provider procedures requiring assistance completed. mb9 19:39 CT Abd/Pelvis - IV Contrast Only In Process Unspecified. EDMS 20:17 IV discontinued, intact, bleeding controlled, No redness/swelling at site. Pressure pf1 dressing applied. 20:19 Provided Education on: prescription education. pf1 Administered Medications: No medications were administered Medication: 18:30 VIS not applicable for this client. mb9 Outcome: 20:04 Discharge ordered by . sb4 20:18 Discharged to home ambulatory. pf1 20:18 Condition: improved 20:18 Discharge instructions given to patient, Instructed on discharge instructions, follow up and referral plans. Demonstrated understanding of instructions, follow-up care, medications, Prescriptions given X 2. 20:19 Patient left the ED. pf1 Signatures: Dispatcher [employer] EDMS India Luo RN RN ap3 Nydia Huddleston, PAJoseC PA-C sb4 Helen Hall RN RN mb9 Vidhi Courtney RN RN pf1 Mel Glover, NEREIDA PAS ts1
--- NOTE | 2023-02-17 20:05 | EDPHYS ---
Physician Documentation [facility] Name: Sisi Aldrich Age: 22 yrs Sex: Female : 2000 Arrival Date: 02/17/2023 Time: 18:03 Bed 11 Private MD: ED Physician Iam Kc HPI: 02/17 18:32 This 22 yrs old Female presents to ER via Ambulatory with complaints of sb4 Abdominal Pain. 18:32 The patient presents with abdominal pain in the epigastric area. Onset: The sb4 symptoms/episode began/occurred 3 day(s) ago. The symptoms do not radiate. Associated signs and symptoms: Pertinent positives: diarrhea, nausea, Pertinent negatives: fever, vaginal discharge, vomiting. The symptoms are described as sharp. Modifying factors: The symptoms are alleviated by nothing, the symptoms are aggravated by pressure. The patient has not experienced similar symptoms in the past. 19:08 had IUD removed last month and started on OCPs. also started on sertraline 2 weeks ago. sb4 Historical: - Allergies: 18:23 No Known Allergies; ap3 - Home Meds: 18:23 control [Active]; ap3 - PMHx: 18:23 None; ap3 - PSHx: 18:23 Tonsillectomy; ap3 - Immunization history:: Client reports receiving the 2nd dose of the Covid vaccine. - Social history:: Smoking status: Reported history of juuling and/or vaping. ROS: 18:32 Constitutional: Negative for fever, chills, and weight loss. sb4 18:32 Abdomen/GI: Positive for abdominal pain, nausea, diarrhea. 18:32 All other systems are negative. Exam: 18:32 Constitutional: This is a well developed, well nourished patient who is awake, alert, sb4 and in no acute distress. Head/Face: Normocephalic, atraumatic. Eyes: Extra-ocular motions intact. Periorbital areas with no swelling, redness, or edema. ENT: Mucous membranes moist. Cardiovascular: Regular rate and rhythm with a normal S1 and S2. Respiratory: Lungs have equal breath sounds bilaterally, clear to auscultation and percussion. No rales, rhonchi or wheezes noted. No increased work of breathing, no retractions or nasal flaring. Abdomen/GI: Soft, non-tender, no distension. Skin: Warm, dry with normal turgor. Normal color with no rashes, no lesions, and no evidence of cellulitis. MS/ Extremity: Pulses equal, no cyanosis. Neurovascular intact. Full, normal range of motion. Vital Signs: 18:22 BP 116 / 71; Pulse 82; Resp 19; Temp 98.2; Pulse Ox 100% ; Weight 56.7 kg; Pain 6/10; ap3 20:18 BP 104 / 72; Pulse 82; Resp 16; Pulse Ox 100% on R/A; Pain 0/10; pf1 18:22 Pain Scale: Adult ap3 20:18 Pain Scale: Adult pf1 MDM: 18:11 Patient medically screened. sb4 18:32 Differential diagnosis: Cholelithiasis, gastritis, non-specific abd pain, pancreatitis, sb4 Peptic Ulcer Disease. 20:03 Data reviewed: vital signs, nurses notes, lab test result(s), radiologic studies, and sb4 as a result, I will discharge patient. Counseling: I had a detailed discussion with the patient and/or guardian regarding the historical points, exam findings, and any diagnostic results supporting the discharge/admit diagnosis, lab results, radiology results, to return to the emergency department if symptoms worsen or persist or if there are any questions or concerns that arise at home. 02/17 18:31 Order name: CBC with Diff; Complete Time: 19:15 sb4 02/17 18:31 Order name: CMP; Complete Time: 19:15 sb4 02/17 18:31 Order name: Lipase; Complete Time: 19:15 sb4 02/17 18:31 Order name: Test, Urine; Complete Time: 19:06 sb4 02/17 18:31 Order name: Urinalysis w/ reflexes; Complete Time: 19:07 sb4 02/17 18:31 Order name: CT Abd/Pelvis - IV Contrast Only; Complete Time: 20:01 sb4 02/17 18:31 Order name: IV Saline Lock; Complete Time: 18:44 sb4 02/17 18:31 Order name: Labs collected and sent; Complete Time: 18:44 sb4 Administered Medications: No medications were administered Disposition: 18:35 Co-signature as Attending Physician, Iam NEWBERRY was immediately available on-site ms3 in the Emergency Department for consultation in the care of the patient. Disposition Summary: 02/17/23 20:04 Discharge Ordered Location: Home sb4 Problem: an ongoing problem sb4 Symptoms: have improved sb4 Condition: Stable sb4 Diagnosis - Upper abdominal pain, unspecified sb4 - Diarrhea, unspecified sb4 Followup: sb4 - With: Private Physician - When: As needed - Reason: Recheck today's complaints, Continuance of care, Re-evaluation by your physician Discharge Instructions: - Discharge Summary Sheet sb4 - Abdominal Pain, Adult sb4 - Food Choices to Help Relieve Diarrhea, Adult sb4 Forms: - Medication Reconciliation Form sb4 - Thank You Letter sb4 - Antibiotic Education sb4 - Prescription Opioid Use sb4 - Patient Portal Instructions sb4 - Leadership Thank You Letter sb4 Prescriptions: - Imodium A-D 2 mg Oral tablet - take 0.5 tablet by ORAL route every 4 hours as needed for loose stool; do not sb4 exceed 6 mg per 24 hrs; 12 tablet; Refills: 0, Product Selection Permitted - dicyclomine 20 mg Oral Tablet - take 1 tablet by ORAL route 3 times per day; 12 tablet; Refills: 0, Product sb4 Selection Permitted Signatures: Dispatcher [employer] India Carroll RN RN ap3 Iam Kc DO DO ms3 Nydia Huddleston PA-C PA-C sb4
[2023-02-17 20:52] VITALS: TEMP 98.2; O2SAT 100
[2023-02-17 20:58] VITALS: BP 104/72
== END 2023-02-17 20:19 | disposition home or self-care (01) ==
LOC: ER 18:03
DX: R10.13 Epigastric pain (principal); R19.7 Diarrhea, unspecified
CPT/HCPCS: 85025; 81001; 36415; 81025; 83690; 80053; 74177; 99284; Q9967

== ENCOUNTER → 2023-06-12 | Emergency (ER) | payer OTHER ==
[~2023-06-12] MED LIST: NA CHLORIDE 0.9% 1,000 ML ONE; ONDANSETRON 4 MG/2 ML VIAL ONE
--- OUTSIDE RECORDS SUMMARY | 2023-06-12 14:41 | XMS REPORT | Continuity of Care Document ---
Author Name Unknown Address [address] [facility] [address] [place] [address] [facility] thconnect Address [address] [facility] [address] [place] [address] Care Team Providers Care Trencher Driver Name Role Phone SANJAY WEBB Primary Care Physician Daija vailable DANII COLVIN Attending Clinician UnavailDanii Syed MD Attending Clinician [phone] Mirtha Trujillo Attending Clinician [phone] Lab, [facility] Po I Attending Clinician Unavailab MIRTHA Joyce Attending Clinician Unavailable Domenico Alvares DO Attending Clinician [phone] DOMENICO ALVARES Attending Clinician Unavailable DANII COLVIN Admitting Clinician UnavailDOMENICO Phillips Admitting Clinician Unavailable Payers Payer Name Policy Type Policy Number Effective Date Expirati on Date Source [employer] [id number] 2022 00:00:00 Problems Condition Name Condition Details Condition Category Status Onset Date Resolution Date Last Treatment Date Treating Clinician Comments Source No known active problems No known active problems Disease [facility] Allergies, Adverse Reactions, Alerts Allergy Name Allergy Type Status Severity Reaction(s) Onset Date Inactive Date Treating Clinician Comments Source NO KNOWN ALLERGIE S Drug Class Active [facility] Social History Social Habit Start Date Stop Date Quantity Comments Source Exposure to SARS-CoV-2 (event) 2022-05-01 00:00:00 2022-05-11 19:43:[address] [facility] Sex Assigned At 2000 00:00:00 2000 00:00:[address] [facility] Smoking Status Start Date Stop Date Source Tobacco smoking consumption unknown [facility] Medications Ordered Medication Name Filled Medication Name Start Date Stop Date Current Medication? Ordering Clinician Indication Dosage Frequency Signature (SIG) Comments Components Source iopamidol (ISOVUE 370-500 mL) injection 75 mL 2021-06 05:15: 00 05-12 05:15 :00 No [id number] 75mL 75 mL, Intravenou s, ONCE, 1 dose, On Tue05/11/22 at 2315, Routine [facility] cefdinir (OMNICEF) capsule 300 mg 2021-06 05:00: 00 05-12 04:53 :00 No 300mg 300 mg, Oral, ONCE, 1 dose, On Tue05/11/22 at 2300, VIET
Re ason for Anti-Infec tive: Documented Infection< br>Documen robert Infection Site: Urine
D uration of Therapy: 10 days [facility] NaCl 0.9% (NS) bolus infusion 1,000 mL 2021-06 02:30: 00 05-12 04:53 :00 No 1000mL at 999 mL/hr, 1,000 mL, IV Infusion, ONCE, 1 dose, On Tue05/11/22 at 2030, [facility] acetaminoph en (TYLENOL) tablet 650 mg 2021-06 02:15: 00 05-12 02:17 :00 No 650mg 650 mg, Oral, ONCE, 1 dose, On Tue05/11/22 at 2015, [facility] ondansetron (ZOFRAN (PF)) injection 8 mg 2021-06 01:45: 00 05-12 01:59 :00 No 8mg 8 mg, Slow IV Push, ONCE, 1 dose, On Tue05/11/22 at 1945, VIET [facility] famotidine (PEPCID (PF)) injection 20 mg 2021-06 01:45: 00 05-12 01:59 :00 No 20mg 20 mg, Slow IV Push, ONCE, 1 dose, On Tue05/11/22 at 1945, VIET [facility] ondansetron 4 mg tablet 2021-06 00:00: 00 Yes [id number] 1-2 tablets every 6 hours as needed for nausea [facility] cefdinir 300 mg capsule 2021-06 00:00: 00 05-22 05:59 :00 No [id number] 300mg Take 1 capsule by mouth every 12 (twelve) hours for 10 days. [facility] iohexol (OMNIPAQUE 350 BULK-100 mL) injection 100 mL 08-13 23:45: 00 08-13 23:29 :00 No 100mL 100 mL, Intravenou s, ONCE, 1 dose, Tue08/13/19 at 1745, Routine [facility] naproxen sodium (ANAPROX DS) 550 mg tablet 08-13 00:00: 00 Yes [id number] 550mg Take 1 tablet by mouth 2 (two) times daily with meals. [facility] methylPREDN ISolone (MEDROL, REYNA,) 4 mg tablets 08-13 00:00: 00 Yes [id number] Take by mouth SEE-INSTRU CTIONS. follow package directions [facility] naproxen sodium (ANAPROX DS) 550 mg tablet 08-13 00:00: 00 Yes [id number] 550mg Take 1 tablet by mouth 2 (two) times daily with meals. [facility] methylPREDN ISolone (MEDROL, REYNA,) 4 mg tablets 08-13 00:00: 00 Yes [id number] Take by mouth SEE-INSTRU CTIONS. follow package directions [facility] naproxen sodium (ANAPROX DS) 550 mg tablet 08-13 00:00: 00 Yes [id number] 550mg Take 1 tablet by mouth 2 (two) times daily with meals. [facility] methylPREDN ISolone (MEDROL, REYNA,) 4 mg tablets 08-13 00:00: 00 Yes [id number] Take by mouth SEE-INSTRU CTIONS. follow package directions [facility] naproxen sodium (ANAPROX DS) 550 mg tablet 08-13 00:00: 00 Yes [id number] 550mg Take 1 tablet by mouth 2 (two) times daily with meals. [facility] methylPREDN ISolone (MEDROL, REYNA,) 4 mg tablets 08-13 00:00: 00 Yes [id number] Take by mouth SEE-INSTRU CTIONS. follow package directions [facility] methocarbam ol 500 mg tablet 08-13 00:00: 00 08-18 05:59 :00 No [id number] 500mg Take 1 tablet by mouth 3 (three) times daily for 5 days. [facility] Vital Signs Vital Name Observation Time Observation Value Comments S nando Systolic blood pressure 2022-05-12 04:00:00 115 mm[Hg] [facility] Diastolic blood pressure 2022-05-12 04:00:00 79 mm[Hg] [facility] Heart rate 2022-05-12 04:00:00 90 /min [facility] Respiratory rate 2022-05-12 04:00:00 18 /min [facility] Oxygen saturation in Arterial blood by Pulse oximetry 2022-05-12 04:00:00 98 /min [facility] Body temperature 2022-05-12 01:46:[address] [facility] Body height 2022-05-12 01:46:00 144.8 cm [facility] Body weight 2022-05-12 01:46:00 58.968 kg [facility] BMI 2022-05-12 01:46:00 28.13 kg/m2 [facility] Systolic blood pressure 2019-08-14 00:00:00 113 mm[Hg] [facility] Diastolic blood pressure 2019-08-14 00:00:00 81 mm[Hg] [facility] Heart rate 2019-08-14 00:00:00 98 /min [facility] Respiratory rate 2019-08-14 00:00:00 20 /min [facility] Oxygen saturation in Arterial blood by Pulse oximetry 2019-08-14 00:00:00 96 /min [facility] Body height 2019-08-13 22:19:00 154.9 cm [facility] Body weight 2019-08-13 22:19:00 49.896 kg [facility] BMI 2019-08-13 22:19:00 20.78 kg/m2 [facility] Systolic blood pressure 2019-08-14 00:00:00 113 mm[Hg] [facility] Diastolic blood pressure 2019-08-14 00:00:00 81 mm[Hg] [facility] Heart rate 2019-08-14 00:00:00 98 /min [facility] Respiratory rate 2019-08-14 00:00:00 20 /min [facility] Oxygen saturation in Arterial blood by Pulse oximetry 2019-08-14 00:00:00 96 /min [facility] Body height 2019-08-13 22:19:00 154.9 cm [facility] Body weight 2019-08-13 22:19:00 49.896 kg [facility] BMI 2019-08-13 22:19:00 20.78 kg/m2 [facility] Procedures Procedure Date / Time Performed Performing Clinician Source CT ABDOMEN PELVIS W CONTRAST 2022-05-12 04:18:[address] [facility] LIPASE 2022-05-12 01:58:00 Danii Colvin [facility] TEST, SERUM 2022-05-12 01:58:[address] [facility] COMP. METABOLIC PANEL ([id number]) 2022-05-12 01:58:[address] [facility] CBC WITH DIFF 2022-05-12 01:58:00 [facility] 2022-05-12 01:58:00 Danii Colvin [facility] NOTICE OF PRIVACY PRACTICES 2022-05-12 01:25:34 Doctor Unassigned, [place] [facility] CONSENT/REFUSAL FOR DIAGNOSIS AND TREATMENT 2022-05-12 01:24:42 Doctor Unassigned, [place] [facility] CT ABDOMEN PELVIS W CONTRAST 2019-08-13 23:43:[address] [facility] CT THORAX W CONTRAST 2019-08-13 23:43:[address] [facility] CT CERVICAL SPINE WO CONTRAST 2019-08-13 23:20:[address] [facility] CT HEAD WO CONTRAST 2019-08-13 23:19:[address] [facility] COMP. METABOLIC PANEL ([id number]) 2019-08-13 22:47:[address] [facility] CBC WITH DIFFERENTIAL 2019-08-13 22:47:[address] [facility] URINALYSIS 2019-08-13 22:47:00 Domenico Alvares [facility] POCT TEST 2019-08-13 22:44:[address] [facility] CONSENT/REFUSAL FOR DIAGNOSIS AND TREATMENT 2019-08-13 22:15:06 Doctor Unassigned, [place] [facility] Encounters Start Date/Time End Date/Time Encounter Type Admission Type Attending [facility] Care Facility Care Department Encounter ID Source 2022-05-11 19:49:00 2022-05-11 23:02:00 Emergency X DANII COLVIN [facility] ERT [id number] [facility] 2022-05-11 19:49:00 2022-05-11 23:02:00 Emergency Danii Colvin [facility] [id number] [id number] [id number] [id number] [facility] 2020-07-24 00:00:00 2020-07-24 00:00:00 Letter (Out) Mirtha Rossi [facility] 1.840.114 [id number] 4.2.7.2.686 [id number] 2020-07-24 00:00:00 2020-07-24 00:00:00 Letter (Out) Mirtha Rossi [facility] [id number] [id number] [id number] [facility] 2020-07-17 14:15:27 2020-07-17 14:35:27 Laboratory Only Lab, [facility] Mirtha Franco [facility] [id number] [id number] [id number] [id number] [facility] 2020-07-17 14:15:27 2020-07-17 14:35:27 Laboratory Only Lab, [facility] [id number] [id number] 2020-07-17 14:00:00 2020-07-17 14:00:00 Outpatient R MIRTHA ROSSI [facility] [id number] [facility] 2019-08-13 16:18:19 2019-08-13 18:49:00 Emergency Domenico Alvares [facility] [id number] [id number] 4.2.7.2.686 [id number] [facility] 2019-08-13 16:18:19 2019-08-13 18:49:00 Emergency X DOMENICO ALVARES [facility] ERT [id number] [facility] 2019-08-13 16:18:19 2019-08-13 18:49:00 Emergency Domenico Alvares [facility] [id number] [id number] [id number] [id number] Results Test Description Test Time Test Comments Results Resul t Comments Source CT HEAD WO CONTRAST 2019-07-22 4 23:36:19 No acute intracranial findings. No acute [...] findings. CT cervical spine: There is normal sagittal alignment and cervical lordosis. [...] findings.No acute osseous findings in the cervical spine. [facility] CT CERVICAL SPINE WO CONTRAST 2019-07-22 4 23:36:19 No acute intracranial findings. No acute [...] findings. CT cervical spine: There is normal sagittal alignment and cervical lordosis. [...] findings.No acute osseous findings in the cervical spine. [facility]* Test Item Value Reference Range Interpretation Comme nts APPEARANCE (test code = 9249391930) Hazy Clear A COLOR (test code = 7612834179) Yellow Yellow PH (test code = 6008160428) 4.8-8.0 SP GRAVITY (test code = 5082190275) 1.003-1.030 GLU U QUAL (test code = 4768725724) Normal Normal BLOOD (test code = 1468674749) 2+ Negative A KETONES (test code = 1749148262) 5 mg/dL Negative A PROTEIN (test code = 2887-8) Negative Negative UROBILIN (test code = 4214144202) Normal Normal BILIRUBIN (test code = 9162246893) Negative Negative NITRITE (test code = 4041118184) Negative Negative LEUK GERARDO (test code = 3622710090) Negative Negative RBC/HPF (test code = 5441925859) See_Comment H [Automated [employer]] The system which generated this result transmitted reference range: 0 - 3 HPF. The reference range was not used to interpret this result as normal/abnormal. WBC/HPF (test code = 5518529293) See_Comment [Automated messa ge] The system which generated this result transmitted reference range: 0 - 5 HPF. The reference range was not used to interpret this result as normal/abnormal. BACTERIA (test code = 5957253830) Few Negative A MUCOUS (test code = 1065931997) Marked Negative LPF A SQ EPITH (test code = 0049572849) HPF Lab Interpretation (test code = 80672-8) Abnormal [facility] WITH [id number] 22:56:00* Test Item Value Reference Range Interpretation Comme nts WBC (test code = 6690-2) See_Comment [Automated [employer]] The system which generated this result transmitted reference range: 4.50 - 13.50 10*3/?L. The reference range was not used to interpret this result as normal/abnormal. RBC (test code = 789-8) See_Comment [Automated [employer]] The system which generated this result transmitted reference range: 4.10 - 5.10 10*6/?L. The reference range was not used to interpret this result as normal/abnormal. HGB (test code = 718-7) 13.4 g/dL 12-16 HCT (test code = 4544-3) 41.1 % 36-45 MCV (test code = 787-2) 85.1 fL 78-95 MCH (test code = 785-6) 27.7 pg 26-32 MCHC (test code = 786-4) 32.6 g/dL 32-36 RDW-SD (test code = 33773-7) 39.8 fL 38.5-49 RDW-CV (test code = 788-0) 12.9 % 11.5-14 PLT (test code = 777-3) See_Comment H [Automated [employer]] The system which generated this result transmitted reference range: 135 - 361 10*3/?L. The reference range was not used to interpret this result as normal/abnormal. MPV (test code = 43785-5) 9.8 fL 9.4-13.3 NRBC/100 WBC (test code = 8681413302) See_Comment [Automated [facility] [employer] ssage] The system which generated this result transmitted reference range: 0.0 - 10.0 /100 WBCs. The reference range was not used to interpret this result as normal/abnormal. NRBC x10^3 (test code = 7207198504) <0.01 See_Comment [Automated messa ge] The system which generated this result transmitted reference range: 10*3/?L. The reference range was not used to interpret this result as normal/abnormal. GRAN MAT (NEUT) % (test code = 770-8) 66.3 % IMM GRAN % (test code = 6543382727) 0.40 % LYMPH % (test code = 736-9) 27.6 % MONO % (test code = 5905-5) 5.2 % EOS % (test code = 713-8) 0.1 % BASO % (test code = 706-2) 0.4 % GRAN MAT x10^3(ANC) (test code = 1300907017) 7.58 10*3/uL 1.5-10.3 IMM GRAN x10^3 (test code = 7521420587) 0.05 10*3/uL 0-0.06 LYMPH x10^3 (test code = 731-0) 3.15 10*3/uL 0.7-7.4 MONO x10^3 (test code = 742-7) 0.59 10*3/uL 0-0.5 H EOS x10^3 (test code = 711-2) <0.03 0-0.4 BASO x10^3 (test code = 704-7) 0.04 10*3/uL 0-0.1 Lab Interpretation (test code = 15519-6) Abnormal [id number] 22:44:00* Test Item Value Reference Range Interpretation Comme nts POCT PREG (test code = 1605) negative On board controls acceptable with C Line (test code = 3574) present POCT PREG LOT # (test code = 3575) [id number] POCT PREG TEST DATE ( test code = 3576) 01/17/2021 Lab Interpretation (test cod e = 15067-8) Normal [facility]
[2023-06-12 16:56] LABS: Absolute Lymphocytes (CBC) 2.7 K/uL (0.7-4.9); Hematocrit 42.6 % (36.0-45.0); Lymphocytes % 21.2 % (15.3-44.8); MCV 87.1 fL (80-100); MPV 7.8 fL (7.6-11.3); Platelets 410 thou/uL (152-406); RBC Red Blood Cell Count 4.89 M/uL (3.86-4.86)
[2023-06-12 17:14] LABS: Albumin 4.1 g/dL (3.4-5.0); Bilirubin Total 0.5 mg/dL (0.2-1.0); Potassium 3.9 mEq/L (3.5-5.1); Protein, Total 8.9 g/dL (6.4-8.2)
--- NOTE | 2023-06-12 18:58 | EDPHYS ---
Physician Documentation [facility] Name: Sisi Aldrich Age: 22 yrs Sex: Female : 2000 Arrival Date: 06/12/2023 Time: 14:37 Bed IW2 Private MD: ED Physician Joaquín Aragon HPI: 06/12 19:12 This 22 yrs old Female presents to ER via Ambulatory with complaints of rt Vomiting. 19:12 Patient presents to the ED with nausea, vomiting. Patient states that she consumed a rt large amount of alcohol yesterday evening which caused her to feel this way. Denies any abdominal pain, chest pain. Denies other acute complaints, symptoms are moderate severity, no other aggravating or alleviating factors.. 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 - Social history:: Smoking status: Patient denies any tobacco usage or history of. Patient uses alcohol. ROS: 19:12 Constitutional: Negative for fever, chills, and weight loss, Cardiovascular: Negative rt for chest pain, palpitations, and edema, Respiratory: Negative for shortness of breath, cough, wheezing, and pleuritic chest pain, MS/Extremity: Negative for injury and deformity, Skin: Negative for injury, rash, and discoloration, Neuro: Negative for headache, weakness, numbness, tingling, and seizure, Psych: Negative for depression, anxiety, suicide ideation, homicidal ideation, and hallucinations, 19:12 Abdomen/GI: Positive for nausea and vomiting, Negative for abdominal pain, Exam: 19:12 Constitutional: This is a well developed, well nourished patient who is awake, alert, rt and in no acute distress. Head/Face: Normocephalic, atraumatic. Chest/axilla: Normal chest wall appearance and motion. Nontender with no deformity. No lesions are appreciated. Cardiovascular: Regular rate and rhythm with a normal S1 and S2. No gallops, murmurs, or rubs. Normal PMI, no JVD. No pulse deficits. Respiratory: Lungs have equal breath sounds bilaterally, clear to auscultation and percussion. No rales, rhonchi or wheezes noted. No increased work of breathing, no retractions or nasal flaring. Abdomen/GI: Soft, non-tender, with normal bowel sounds. No distension or tympany. No guarding or rebound. No evidence of tenderness throughout. Skin: Warm, dry with normal turgor. Normal color with no rashes, no lesions, and no evidence of cellulitis. MS/ Extremity: Pulses equal, no cyanosis. Neurovascular intact. Full, normal range of motion. Neuro: Awake and alert, GCS 15, oriented to person, place, time, and situation. Cranial nerves II-XII grossly intact. Motor strength 5/5 in all extremities. Sensory grossly intact. Cerebellar exam normal. Normal gait. Psych: Awake, alert, with orientation to person, place and time. Behavior, mood, and affect are within normal limits. Vital Signs: 15:00 BP 128 / 98; Pulse 86; Resp 16; Temp 98.1; Pulse Ox 100% ; Weight 58.97 kg; Height 4 db ft. 9 in. ; 18:29 BP 119 / 91; Pulse 80; Resp 16; Pulse Ox 100% on R/A; db 15:00 Body Mass Index 28.13 (58.97 kg, 144.78 cm) db MDM: 16:29 Patient medically screened. rt 19:12 Differential diagnosis: Pancreatitis, alcoholic gastritis, hangover. Data reviewed: rt vital signs, nurses notes, lab test result(s). Test considered but Not performed: CT: No abdominal pain, benign labs, no tenderness, CT scan not indicated. ED course: Patient left from the waiting room before I could give the patient her results, further instructions.. 06/12 16:30 Order name: CBC with Diff; Complete Time: 17:21 rt 06/12 16:30 Order name: CMP; Complete Time: 17:21 rt 06/12 16:30 Order name: Lipase; Complete Time: 17:21 rt 06/12 16:30 Order name: Test, Serum; Complete Time: 17:21 rt Administered Medications: 16:52 Drug: NS 0.9% IV 1000 ml IV at 1 bolus Per protocol; 1000 mL bolus Route: IV; Rate: 1 cm10 bolus; Site: right antecubital; 16:52 Drug: Ondansetron IVP 4 mg IVP once; over 2 minutes Route: IVP; Site: right antecubital;cm10 Disposition Summary: 06/12/23 18:58 Discharge Ordered Notes: Location: Home rt Condition: Stable rt Diagnosis - Nausea with vomiting, unspecified rt Followup: rt - With: Private Physician - When: 2 - 3 days - Reason: Forms: - Medication Reconciliation Form rt - Thank You Letter rt - Antibiotic Education rt - Prescription Opioid Use rt - Patient Portal Instructions rt - Leadership Thank You Letter rt Signatures: Dispatcher [employer] Ida Alonso, DIPESH LANDON db Joaquín Aragon MD MD rt Katiuska Ayala RN RN cm10
--- NOTE | 2023-06-12 18:58 | ER ---
Nurse's Notes [facility] Name: Sisi Aldrich Age: 22 yrs Sex: Female : 2000 Arrival Date: 06/12/2023 Time: 14:37 Bed IW2 Private MD: Diagnosis: Nausea with vomiting, unspecified Presentation: 06/12 15:00 Chief complaint: Patient states: VOMITING STARTED TODAY. STATES DRANK TOO MUCH ALCOHOL db YESTERDAY. Coronavirus screen: Client denies travel out of the [place] in the last 14 days. At this time, the client does not indicate any symptoms associated with coronavirus-19. Ebola Screen: Patient negative for fever greater than or equal to 101.5 degrees Fahrenheit, and additional compatible Ebola Virus Disease symptoms Patient denies exposure to infectious person. Patient denies travel to an Ebola-affected area in the 21 days before illness onset. No symptoms or risks identified at this time. Initial Sepsis Screen: Does the patient meet any 2 criteria? No. Patient's initial sepsis screen is negative. Does the patient have a suspected source of infection? No. Patient's initial sepsis screen is negative. Risk Assessment: Do you want to hurt yourself or someone else? Patient reports no desire to harm self or others. Onset of symptoms was June 12, 2023. 15:00 Method Of Arrival: Ambulatory db 15:00 Acuity: KAVIN 3 db Triage Assessment: 15:02 General: Appears in no apparent distress. comfortable, Behavior is calm, cooperative. db Pain: Complains of pain in abdomen. Neuro: Level of Consciousness is awake, alert, obeys commands, Oriented to person, place, time, situation. GI: Reports lower abdominal pain, upper abdominal pain, nausea, vomiting. [employer]: 15:03 LMP 06/06/2023, unknown db Historical: - Allergies: 15:02 No Known Allergies; db - PSHx: 15:02 Tonsillectomy; db - Immunization history:: Adult Immunizations unknown. - Social history:: Smoking status: Patient denies any tobacco usage or history of. Patient uses alcohol. Screenin:29 [facility] ED Fall Risk Assessment (Adult) History of falling in the last 3 months, db including since admission No falls in past 3 months (0 pts) Confusion or Disorientation No (0 pts) Intoxicated or Sedated No (0 pts) Impaired Gait No (0 pts) Mobility Assist Device Used No (0 pt) Altered Elimination No (0 pt) Score/Fall Risk Level 0 - 2 = Low Risk Oriented to surroundings, Maintained a safe environment. Abuse screen: Denies threats or abuse. Denies injuries from another. Nutritional screening: No deficits noted. Tuberculosis screening: No symptoms or risk factors identified. Assessment: 18:27 Reassessment: Patient appears in no apparent distress at this time. Patient and/or db family updated on plan of care and expected duration. Pain level reassessed. General: Appears in no apparent distress. comfortable, Behavior is calm, cooperative. Neuro: Level of Consciousness is awake, alert, obeys commands, Oriented to person, place, time, situation. GI: Abdomen is flat. Vital Signs: 15:00 BP 128 / 98; Pulse 86; Resp 16; Temp 98.1; Pulse Ox 100% ; Weight 58.97 kg; Height 4 db ft. 9 in. ; 18:29 BP 119 / 91; Pulse 80; Resp 16; Pulse Ox 100% on R/A; db 15:00 Body Mass Index 28.13 (58.97 kg, 144.78 cm) ED Course: 14:38 Patient arrived in ED. mr 15:02 Triage completed. db 15:02 Arm band placed on Patient placed in waiting room. db 15:19 Joaquín Aragon MD is Attending Physician. rt 16:48 Test, Serum Sent. cm10 16:48 Lipase Sent. cm10 16:48 CMP Sent. cm10 16:48 CBC with Diff Sent. cm10 16:49 Initial lab(s) drawn, by me, sent to lab. Inserted saline lock: 22 gauge in right cm10 antecubital area, using aseptic technique. Blood collected. 18:25 Ida Cedillo, RN is Primary Nurse. db 18:27 Patient has correct armband on for positive identification. db 18:27 IV discontinued, intact, bleeding controlled, No redness/swelling at site. REMOVED PER db PATIENT REQUEST. Administered Medications: 16:52 Drug: NS 0.9% IV 1000 ml IV at 1 bolus Per protocol; 1000 mL bolus Route: IV; Rate: 1 cm10 bolus; Site: right antecubital; 16:52 Drug: Ondansetron IVP 4 mg IVP once; over 2 minutes Route: IVP; Site: right antecubital;cm10 Outcome: 18:31 AMA AMA form signed db 18:31 Condition: stable 18:31 Instructed on AMA AND NEED TO RETURN. 18:58 Discharge ordered by . rt 19:16 Patient left the ED. as6 Signatures: Helen Jin, Reg Reg mr ChristianomanuelitoToby mendoza RN RN as6 Ida Cedillo RN RN db Joaquín Aragon MD MD rt Katiuska Ayala RN RN cm10
[2023-06-12 20:16] VITALS: TEMP 98.1; O2SAT 100
[2023-06-12 20:22] VITALS: BP 119/91
== END ==
LOC: ER 14:37
DX: R11.2 Nausea with vomiting, unspecified (principal)
CPT/HCPCS: 85025; 36415; 84703; 83690; 80053; 96374; 99284; J2405; J7030

== ENCOUNTER 2024-07-22 19:07 | Emergency (ER) | payer OTHER ==
--- OUTSIDE RECORDS SUMMARY | 2024-07-22 19:10 | XMS REPORT | Continuity of Care Document ---
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 reference range: 4.50 - 13.50 10*3/?L. The reference range was not used to interpret this result as normal/abnormal. RBC (test code = 789-8) See_Comment [Automated [employer]] The system which generated this result [...] 32.6 g/dL 32-36 RDW-SD (test code = 40713-6) 39.8 fL 38.5-49 RDW-CV (test code = 788-0) 12.9 % 11.5-14 PLT (test code = 777-3) See_Comment H [Automated [employer]] The system which generated this result transmitted reference range: 135 - 361 10*3/?L. The reference range was not used to interpret this result as normal/abnormal. MPV (test code = 22453-6) 9.8 fL 9.4-13.3 NRBC/100 WBC (test code = 5207642588) See_Comment [Automated [employer] ssage] The system which generated this result transmitted reference range: 0.0 - 10.0 /100 WBCs. The reference range was not used to interpret this result as normal/abnormal. NRBC x10^3 (test code = 4652040394) <0.01 See_Comment [Automated [employer]] The system which generated this result transmitted reference range: 10*3/?L. The reference range was not used to interpret this result as normal/abnormal. GRAN MAT (NEUT) % (test code = 770-8) 66.3 % IMM GRAN % (test code = 4077855096) 0.40 % LYMPH % (test code = 736-9) 27.6 % MONO % (test code = 5905-5) 5.2 % EOS % (test code = 713-8) 0.1 % BASO % (test code = 706-2) 0.4 % GRAN MAT x10^3(ANC) (test code = 1292967833) 7.58 10*3/uL 1.5-10.3 IMM GRAN x10^3 (test code = 7942837202) 0.05 10*3/uL 0-0.06 LYMPH x10^3 (test code = 731-0) 3.15 10*3/uL 0.7-7.4 MONO x10^3 (test code = 742-7) 0.59 10*3/uL 0-0.5 H EOS x10^3 (test code = 711-2) <0.03 0-0.4 BASO x10^3 (test code = 704-7) 0.04 10*3/uL 0-0.1 Lab Interpretation (test code = 40547-0) [id number] 22:44:00* Test Item Value Reference Range Interpretation Comme nts POCT PREG (test code = 1605) negative On board controls acceptable with C Line (test code = 3574) present POCT PREG LOT # (test code = 3575) [id number] POCT PREG TEST DATE ( test code = 3576) 01/17/2021 Lab Interpretation (test cod e = 58026-6) Normal [facility]"
[2024-07-22 19:31] LABS: Specific Gravity 1.023 (1.005-1.030); Sqamous Epithelial <5 /HPF (None Seen); Urine Bacteria None Seen /HPF (<20); Urine Bilirubin NEGATIVE (Negative); Urine Blood 1+ (Negative); Urine Clarity Extremely Turbid (Clear); Urine Color Light-Yellow (Yellow); Urine Culture Reflex Order REFLEXED; Urine Glucose NEGATIVE (Negative); Urine Ketones 4+ (Over) (Negative); Urine Microscopic Reflex YN ORDER UMIC; Urine Mucus 2+ /HPF (None Seen); Urine Nitrite NEGATIVE (Negative); Urine Protein TRACE (Negative); Urine Urobilinogen Normal (Normal); Urine WBC >50 /HPF (<5); Urine WBC Clump Rare /HPF (None Seen); Urine Yeast (Budding) Trace /HPF (None Seen)
--- NOTE | 2024-07-22 19:43 | EDPHYS ---
Physician Documentation [facility] Name: Sisi Aldrich Age: 23 yrs Sex: Female : 2000 Arrival Date: 07/22/2024 Time: 19:07 Bed 11 Private MD: ED Physician Joe Sutton HPI: 07/22 19:33 This 23 yrs old Female presents to ER via Ambulatory with complaints of Low dr5 Back Pain, Urinary Problem. 19:33 The patient presents with pain that is acute. The symptoms are located in the right low dr5 back. Patient is a 23-year-old female with no past medical history coming in with right lower back pain and urinary urgency, frequency, and dysuria this been going on for about a week. Patient denies fever, vaginal bleeding, vaginal discharge, lower abdominal pain. Patient also does report mild nausea, but is often linked to semaglutide the patient is taking.. Historical: - Allergies: 19:32 No Known Allergies; cm10 - PMHx: 19:32 None; cm10 - PSHx: 19:32 Tonsillectomy; cm10 - Immunization history:: Adult Immunizations unknown. - Infectious Disease History:: Denies. - Social history:: Smoking status: unknown. ROS: 19:33 Constitutional: as per hpi dr5 Exam: 19:33 Constitutional: This is a well developed, well nourished patient who is awake, alert, dr5 and in no acute distress. Head/Face: Normocephalic, atraumatic. Eyes: Pupils equal round and reactive to light, extra-ocular motions intact. Lids and lashes normal. Conjunctiva and sclera are non-icteric and not injected. Cornea within normal limits. Periorbital areas with no swelling, redness, or edema. Neck: Trachea midline, no thyromegaly or masses palpated, and no cervical lymphadenopathy. Supple, full range of motion without nuchal rigidity, or vertebral point tenderness. No Meningismus. Chest/axilla: Normal chest wall appearance and motion. Nontender with no deformity. No lesions are appreciated. Cardiovascular: Regular rate and rhythm with a normal S1 and S2. Normal PMI, no JVD. No pulse deficits. Respiratory: Lungs have equal breath sounds bilaterally, clear to auscultation. No rales, rhonchi or wheezes noted. No increased work of breathing, no retractions or nasal flaring. Abdomen/GI: Soft, non-tender, non-distended Back: No spinal tenderness. No costovertebral tenderness. Full range of motion. Skin: Warm, dry with normal turgor. Normal color with no rashes, no lesions, and no evidence of cellulitis. MS/ Extremity: Pulses equal, no cyanosis. Neurovascular intact. Full, normal range of motion. Vital Signs: 19:31 BP 137 / 98; Pulse 98; Resp 15; Temp 97.9; Pulse Ox 98% ; Pain 2/10; cm10 19:31 Pain Scale: Adult cm10 MDM: 19:14 Medical Screening Exam initiated dr5 20:14 Differential diagnosis: UTI, Nephrolithiasis, muscle strain. Data reviewed: vital dr5 signs, nurses notes, lab test result(s), urinalysis, bacteruria, pyuria. I considered the following discharge prescriptions or medication management in the emergency department Medications were administered in the Emergency Department. See MAR. Care significantly affected by the following Social Determinants of Health: Poor access to healthcare and/or lack of insurance, Poor access to transportation, Problems related to employment. Counseling: I had a detailed discussion with the patient and/or guardian regarding the historical points, exam findings, and any diagnostic results supporting the discharge/admit diagnosis, the presence of at least one elevated blood pressure reading (>120/80) during this emergency department visit, lab results, the need for outpatient follow up, for definitive care, a family practitioner, to return to the emergency department if symptoms worsen or persist or if there are any questions or concerns that arise at home. ED course: Patient was given first dose of Keflex due to pharmacies around area all closed. Patient was also given Zofran to help with nausea. Will prescribe patient with Keflex, Zofran to take as needed for nausea, and Diflucan in case of patient developing Irma. All questions answered. Patient stable on discharge. Will have patient follow-up with primary care doctor as needed.. 07/22 19:15 Order name: Urinalysis w/ reflexes; Complete Time: 19:41 dr5 07/22 19:15 Order name: Test, Urine; Complete Time: 19:31 dr5 07/22 19:41 Order name: Urine Culture EDMS Administered Medications: 19:47 Drug: Ondansetron PO 4 mg PO once Route: PO; dr5 19:48 Follow up: Response: Medication administered at discharge. cm10 19:47 Drug: Cephalexin PO 500 mg PO once Route: PO; dr5 19:48 Follow up: Response: Medication administered at discharge. 10 Disposition: 19:51 Co-signature as Attending Physician, Joe Sutton MD I agree with the assessment sp4 and plan of care. I reviewed the patient's care provided by the Advanced Practice Provider and agree with the diagnosis and treatment plan. Disposition Summary: 07/22/24 19:43 Discharge Ordered Notes: Location: Home dr5 Condition: Stable dr5 Diagnosis - UTI/ Urinary tract infection, site not specified dr5 Followup: dr5 - With: Emergency Department - When: As needed - Reason: Worsening of condition Followup: dr5 - With: Private Physician - When: 1 - 2 days - Reason: Recheck today's complaints, Continuance of care, Re-evaluation by your physician Discharge Instructions: - Discharge Summary Sheet dr5 - Urinary Tract Infection, Adult, Glck-rf-Cvez dr5 Forms: - Medication Reconciliation Form dr5 - Antibiotic Education dr5 - Patient Portal Instructions dr5 - Leadership Thank You Letter dr5 Prescriptions: - Cephalexin 500 mg Oral capsule - take 1 capsule ORAL route every 12 hours for 10 days; 20 capsule; Refills: 0, dr5 Product Selection Permitted - Zofran 4 mg Oral Tablet - take 1 tablet ORAL route every 12 hours As needed; 20 tablet; Refills: 0, dr5 Product Selection Permitted - Fluconazole 150 mg Oral tablet - take 1 tablet ORAL route once daily for 1 day; 1 tablet; Refills: 0, Product dr5 Selection Permitted Signatures: Dispatcher [employer] Joe Orlando MD MD sp4 Katiuska Ayala RN RN cm10 Casimiro Dubois, FORMULA TECHNICIAN-C FORMULA TECHNICIAN-Cdr5
--- NOTE | 2024-07-22 19:43 | ER ---
Nurse's Notes [facility] Name: Sisi Aldrich Age: 23 yrs Sex: Female : 2000 Arrival Date: 07/22/2024 Time: 19:07 Bed 11 Private MD: Diagnosis: UTI/ Urinary tract infection, site not specified Presentation: 07/22 19:31 Chief complaint: Patient states: Low back pain and urinary frequency and dysuria for 1 cm10 week. Coronavirus screen: Client denies travel out of the [place] in the last 14 days. Ebola Screen: Patient denies travel to an Ebola-affected area in the 21 days before illness onset. Initial Sepsis Screen: Does the patient meet any 2 criteria? HR > 90 bpm. No. Patient's initial sepsis screen is negative. Does the patient have a suspected source of infection? No. Patient's initial sepsis screen is negative. Risk Assessment: Do you want to hurt yourself or someone else? Patient reports no desire to harm self or others. Onset of symptoms was July 22, 2024. 19:31 Method Of Arrival: Ambulatory cm10 19:31 Acuity: KAVIN 4 cm10 Triage Assessment: 19:32 General: Appears in no apparent distress. comfortable, Behavior is calm, cooperative, cm10 appropriate for age. Pain: Complains of pain in back Pain currently is 2 out of 10 on a pain scale. Neuro: No deficits noted. Level of Consciousness is awake, alert, obeys commands, Oriented to person, place, time, situation, Appropriate for age. Respiratory: No deficits noted. Airway is patent Respiratory effort is even, unlabored, Respiratory pattern is regular, symmetrical. : Reports burning with urination, urinary frequency. Historical: - Allergies: 19:32 No Known Allergies; cm10 - PMHx: 19:32 None; cm10 - PSHx: 19:32 Tonsillectomy; cm10 - Immunization history:: Adult Immunizations unknown. - Infectious Disease History:: Denies. - Social history:: Smoking status: unknown. Screenin:34 [facility] ED Fall Risk Assessment (Adult) History of falling in the last 3 months, cm10 including since admission No falls in past 3 months (0 pts) Confusion or Disorientation No (0 pts) Intoxicated or Sedated No (0 pts) Impaired Gait No (0 pts) Mobility Assist Device Used No (0 pt) Altered Elimination No (0 pt) Score/Fall Risk Level 0 - 2 = Low Risk Oriented to surroundings, Maintained a safe environment, Hourly rounding (assess needs \T\ fall precautionary measures) done. Abuse screen: Denies threats or abuse. Denies injuries from another. Nutritional screening: No deficits noted. Tuberculosis screening: No symptoms or risk factors identified. Vital Signs: 19:31 BP 137 / 98; Pulse 98; Resp 15; Temp 97.9; Pulse Ox 98% ; Pain 2/10; cm10 19:31 Pain Scale: Adult cm10 ED Course: 19:11 Patient arrived in ED. im 19:12 Casimiro Dubois FNP-C [facility]. dr5 19:12 Joe Sutton MD is Attending Physician. dr5 19:31 Katiuska Ayala, DIPESH is Primary Nurse. cm10 19:32 Triage completed. cm10 19:33 Arm band placed on right wrist. Patient placed in an exam room, on a stretcher. cm10 19:34 Patient has correct armband on for positive identification. Bed in low position. Call cm10 light in reach. Provided Education on: ER process and procedures.. 19:48 No provider procedures requiring assistance completed. Patient did not have IV access ss during this emergency room visit. Administered Medications: 19:47 Drug: Ondansetron PO 4 mg PO once Route: PO; dr5 19:48 Follow up: Response: Medication administered at discharge. cm10 19:47 Drug: Cephalexin PO 500 mg PO once Route: PO; dr5 19:48 Follow up: Response: Medication administered at discharge. cm10 Medication: 19:34 VIS not applicable for this client. cm10 Outcome: 19:43 Discharge ordered by . dr5 19:48 Discharged to home ambulatory, ss 19:48 Condition: good 19:48 Discharge instructions given to patient, Instructed on discharge instructions, follow up and referral plans. medication usage, Demonstrated understanding of instructions, follow-up care, medications, Prescriptions given X 3, 19:48 Patient left the ED. ss Signatures: Guadalupe Kapoor RN RN Tricia Dotson Katiuska Ayala RN RN cm10 Casimiro Dubois FNP-C AUDIOVISUAL TECHNICIAN-Cdr5
[2024-07-22] MEDS ORDERED: CEPHALEXIN 250 MG CAP ONE (19:45)
[2024-07-22] MEDS ORDERED: ONDANSETRON 4 MG (ODT) TAB ONE (19:45)
[2024-07-22 20:01] VITALS: BP 137/98; TEMP 97.9; O2SAT 98
== END 2024-07-22 19:48 | disposition home or self-care (01) ==
LOC: ER 19:07
DX: N39.0 Urinary tract infection, site not specified (principal)
CPT/HCPCS: 87088; 81001; 87086; 81025; 99283; Q0162